=== PATIENT | male | born 1935 | race Caucasian/White ===

== ENCOUNTER 2017-08-24 15:22 | Observation (INO) | END 2017-08-25 12:26 ==

== ENCOUNTER 2018-08-25 07:04 | Inpatient (IN) | payer BC ==
[~2018-08-25] VITALS: Ht 170.2 cm; Wt 78.7 kg
[~2018-08-25 07:04] MED LIST: CARV6.25 PO; DONE5TAB46 PO; MIRT15TA5 PO; OLAN5TAB5 PO; TAMS-14 PO
--- NOTE | 2018-08-25 08:15 | ERD ---
ER Documentation Chief Complaint Chief Complaint lying on floor next to bed, redness noted around right eye,no other injury HPI 82-year-old male brought to the emergency department by paramedics from his care facility. Patient has what appears to be an extensive underlying dementia and is unable to provide any history. According to the paramedics, patient was found at the side of his bed after apparent fall. There is no witness to the fall. There is no history of syncope or loss of consciousness. Patient had no obvious traumatic complaints. I have reviewed the training development specialist pre-hospital care. Pre-hospital vital signs were reviewed. Pre-hospital diagnostic tests were reviewed. Upon arrival, patient is unable to provide any further history. ROS All systems reviewed and are negative except as per history of present illness. Medications Home Meds Reported Medications Tamsulosin Hcl* (Flomax*) 0.4 Mg Cap.er.24h, 0.4 MG PO HS, CAP 08/24/17 Carvedilol* (Coreg*) 6.25 Mg Tablet, 6.25 MG PO BID, #60 TAB 08/24/17 Olanzapine* (Zyprexa*) 5 Mg Tablet, 5 MG PO DAILY, #30 TAB 08/24/17 Mirtazapine* (Mirtazapine*) 15 Mg Tablet, 15 MG PO HS, TAB 08/24/17 Donepezil* (Aricept*) 5 Mg Tablet, 5 MG PO DAILY, TAB 08/24/17 Allergies Allergies: Coded Allergies: No Known Allergy (Unverified , 08/24/17) PMhx/Soc History of Surgery: No Anesthesia Reaction: No Hx Neurological Disorder: Yes (dementia) Hx Respiratory Disorders: No Hx Cardiac Disorders: No Hx Psychiatric Problems: No Hx Miscellaneous Medical Probl: No Hx Alcohol Use: No Hx Substance Use: No Hx Tobacco Use: No Smoking Status: Unknown if ever smoked Physical Exam Vitals Vital Signs Date Temp Pulse Resp B/P (MAP) Pulse Ox O2 O2 Flow FiO2 Time Delivery Rate 08/25/18 98.0 82 20 145/82 99 07:05 (103) Physical Exam General: Frail, elderly male in no acute distress HEENT: Scalp atraumatic with no laceration or evidence of skull fracture; no signs of basilar skull fracture. Face symmetric, stable and atraumatic except for what might be a small contusion on the right periorbital area Neck: Full range of motion without discomfort or neurologic symptoms, no midline cervical spine tenderness, step-off, or evidence of significant trauma CV: Regular rate, rhythm, no murmurs appreciated Lungs: Clear to auscultation bilaterally with no chest wall trauma appreciated, chest wall stable with no crepitus Abdomen: Soft, atraumatic and non-tender in all 4 quadrants Extremities: Atraumatic with no bony tenderness or deformity in all 4 extremities, full range of motion throughout all joints; pelvis stable to both AP and lateral compression Back: No thoracic or lumbar midline tenderness, no step-off or evidence of significant trauma Neurologic: Awake, alert and oriented, pupils equal, round and reactive to light, face symmetric, tongue midline, moving all extremities with equal and normal strength, sensory exam grossly non-focal Result Diagram: 08/25/1873708/25/18737 Results 24 hrs Laboratory Tests Test 08/25/18 07:33 08/25/18 07:38 08/25/18 08:07 Bedside Glucose 92 mg/dL White Blood Count 12.4 10^3/ul Red Blood Count 4.42 10^6/ul Hemoglobin 13.6 g/dl Hematocrit 41.3 % Mean Corpuscular Volume 93.4 fl Mean Corpuscular Hemoglobin 30.8 pg Mean Corpuscular Hemoglobin Concent 32.9 g/dl Red Cell Distribution Width 13.6 % Platelet Count 179 10^3/UL Mean Platelet Volume 10.2 fl Immature Granulocytes % 0.300 % Neutrophils % 80.5 % Lymphocytes % 10.8 % Monocytes % 7.8 % Eosinophils % 0.3 % Basophils % 0.3 % Nucleated Red Blood Cells % 0.0 /100WBC Immature Granulocytes # 0.040 10^3/ul Neutrophils # 10.0 10^3/ul Lymphocytes # 1.3 10^3/ul Monocytes # 1.0 10^3/ul Eosinophils # 0.0 10^3/ul Basophils # 0.0 10^3/ul Nucleated Red Blood Cells # 0.0 10^3/ul Sodium Level 145 mmol/L Potassium Level 4.4 mmol/L Chloride Level 108 mmol/L Carbon Dioxide Level 28 mmol/L Anion Gap 9 Blood Urea Nitrogen 22 mg/dl Creatinine 1.49 mg/dl Est Glomerular Filtrat Rate mL/min mL/min Glucose Level 101 mg/dl Calcium Level 9.6 mg/dl Troponin I 0.134 ng/ml Prothrombin Time 13.9 Sec Prothrombin Time Ratio 1.1 INR International Normalized Ratio 1.06 Activated Partial Thromboplast Time 28.6 Sec Current Medications Medications Dose Sig/Shiva Start Time Status Last (Trade) Ordered Route PRN Stop Time Admin Dose Reason Admin Aspirin 325 mg ONCE ONCE 08/25/18 (Aspirin) PO 09:30 08/25/18 09:31 Procedures/MDM Patient was taken to a room, seen and evaluated. Comfort measures were initiated. Diagnostic tests were ordered and reviewed. 3 LEAD RHYTHM STRIP: Normal sinus rhythm without ectopy EK lead EKG reviewed by myself: Normal Sinus Rhythm Left bundle branch block No ST elevation, depression, or T wave inversion Impression: Left bundle branch block RADIOLOGY: Reviewed with the radiologist CONSULTATION: Hospitalist was notified for admission REEVALUATION: 904: Diagnostic tests were appreciated including the normal CT scan and the patient received an aspirin for the elevated troponin. Decision was made to admit for observation. Patient remained hemodynamic is stable and neurologically unchanged. MEDICAL DECISION MAKING: Patient presents after a fall. From a trauma standpoint, patient has been evaluated for significant injury. Patient shows no evidence of significant neurologic, intra-abdominal, intrathoracic or orthopedic trauma based on clinical examination and imaging From a medical standpoint, the fall seems to be related to a geriatric syndrome with multiple causes. I have reviewed medications and evaluated the patient for infection, electrolyte concerns, ischemia and other acute medical concerns. It is unclear exactly what happened with the patient's fall and I am concerned that there may have been a syncopal episode. Patient has a left bundle branch block making it difficult to assess his cardiac status and his troponin is elevated. Patient will require admission for observation to see if this truly represents a cardiac ischemic event From a social standpoint, the patient has been evaluated for safety. It is unclear what the patient's baseline status is but he seems to have a significant underlying dementia which is limiting her ability to take a history and therefore observation seems appropriate Departure Diagnosis: Primary Impression: Fall Additional Impressions: Left bundle branch block (LBBB) Elevated troponin Condition: MITCHELL Cool Aug 25, 2018 08:15
[2018-08-25] MEDS ORDERED: ONDANSETRON 4 MG INJ IV PRN ×2 (09:30→10:00)
[2018-08-25] MEDS ORDERED: ACETAMINOPHEN 325 MG TAB PO PRN ×2 (09:30→10:00)
[2018-08-25] MEDS ORDERED: ASPIRIN 325 MG TAB PO ONE (09:30)
[2018-08-25] MEDS ORDERED: MELA5TAB4 PO (09:55)
[2018-08-25] MEDS: SOD CHLORIDE 0.9% 1,000 ML IV SCH ×2 (09:55→12:24)
[2018-08-25] MEDS: FAMOTIDINE 20 MG INJ IV SCH (09:55)
[2018-08-25] MEDS ORDERED: ATOR10TA65 PO (09:55)
[2018-08-25] MEDS ORDERED: ASPI325T30 PO (09:55)
[2018-08-25] MEDS ORDERED: CARV3.1260 PO (09:56)
[2018-08-25] MEDS ORDERED: PANT40TA3 PO (09:57)
[2018-08-25] MEDS ORDERED: DIAZ5TAB4 PO (09:57)
[2018-08-25] MEDS ORDERED: DOCU250C58 PO (09:58)
[2018-08-25] MEDS ORDERED: VIT1TABL46 PO (09:58)
[2018-08-25] MEDS ORDERED: ESCI20TA PO (09:59)
[2018-08-25] MEDS ORDERED: IBUP-1542 PO (09:59)
[2018-08-25] MEDS ORDERED: HYDROCODONE/APAP (5/325) TAB PO PRN (10:00)
[2018-08-25] MEDS ORDERED: IPRA30SP NS (10:00)
[2018-08-25] MEDS ORDERED: DOCUSATE SODIUM 100 MG CAP PO PRN (10:00)
[2018-08-25] MEDS ORDERED: morphine 2 MG INJ IV PRN (10:00)
[2018-08-25] MEDS ORDERED: NITROGLYCERIN (SL) 0.4 MG TAB SL PRN (10:00)
[2018-08-25] MEDS ORDERED: MAGNESIUM HYDROXIDE 30ML CUP PO PRN (10:00)
[2018-08-25] MEDS ORDERED: NACL 0.9% 3 ML SYG IV SCH (10:00)
[2018-08-25] MEDS ORDERED: BISACODYL 10 MG SUPP PR PRN (10:00)
[2018-08-25] MEDS ORDERED: ACETAMINOPHEN 650 MG SUPP PR PRN (10:00)
[2018-08-25 10:50] VITALS: BP 118/64; PULSE 77; RESP 20
[2018-08-25 11:15] VITALS: BP 143/66; PULSE 64; RESP 19
[2018-08-25] MEDS ORDERED: HEPARIN 1000 UNITS/ML 10 ML INJ IV PRN (13:00)
[2018-08-25] MEDS ORDERED: HEPARIN 1000 UNITS/ML 10 ML INJ IV ONE (13:00)
[2018-08-25] MEDS ORDERED: HEPARIN 25000 UNITS/250 ML 250 ML IV SCH (13:00)
--- NOTE | 2018-08-25 13:11 | HP ---
Date/Time of Note Date/Time of Note DATE: 08/25/18 TIME: 12:55 Assessment/Plan VTE Prophylaxis Pharmacological prophylaxis: heparin Lines/Catheters IV [facility]from [facility] Saline Lock Assessment/Plan Hospital Course Assessment plan 1. Suspect syncope. - Initial CT scan of the brain with no acute intracranial hemorrhage, infarction or mass-effect. - Follow-up on carotid Doppler. - Check orthostatic blood pressures. 2. Elevated troponin. - Locksmith consulted. - Follow-up echocardiogram. - Defer anticoagulation for now. - Monitor troponin trend. - monitor on telemetry 3. Underlying dementia. - Continue reorientation. -Resume patient's home medication. 4. Leukocytosis. - Suspect reactive. - Follow-up on cultures. - Antipyretics as needed for fevers. 5. Acute on suspect chronic kidney disease. - Follow-up on renal panel. - Continue IV hydration. - nephrology consult pending clinical course 6. Elevated creatinine kinase -. Continue IV hydration. 7. Constipation per CT imaging. - Laxatives as needed. 8. Prostatomegaly. - Continue on Flomax. 9. History of hyperlipidemia. - Follow-up on CHD panel. 10. Hypertension. - Continue antihypertensives. Will adjust as needed. 11. Recent fall. -Will get PT/OT To follow. Discussed POC with Dr. Kim Result Diagram: 08/25/1873708/25/1838 Results 24hrs Laboratory Tests Test 08/25/18 07:33 08/25/18 07:38 08/25/18 08:07 08/25/18 11:26 Bedside Glucose 92 White Blood Count 12.4 #H Red Blood Count 4.42 L Hemoglobin 13.6 L Hematocrit 41.3 L Mean Corpuscular Volume 93.4 Mean Corpuscular 30.8 Hemoglobin Mean Corpuscular 32.9 Hemoglobin Concent Red Cell Distribution 13.6 Width Platelet Count 179 Mean Platelet Volume 10.2 Immature Granulocytes % 0.300 Neutrophils % 80.5 H Lymphocytes % 10.8 L Monocytes % 7.8 Eosinophils % 0.3 Basophils % 0.3 Nucleated Red Blood 0.0 Cells % Immature Granulocytes # 0.040 H Neutrophils # 10.0 H Lymphocytes # 1.3 Monocytes # 1.0 H Eosinophils # 0.0 Basophils # 0.0 Nucleated Red Blood 0.0 Cells # Sodium Level 145 H Potassium Level 4.4 Chloride Level 108 Carbon Dioxide Level 28 Anion Gap 9 Blood Urea Nitrogen 22 H Creatinine 1.49 H Est Glomerular Filtrat Rate mL/min Glucose Level 101 Calcium Level 9.6 Troponin I 0.134 *H 0.131 *H Prothrombin Time 13.9 Prothrombin Time Ratio 1.1 INR International 1.06 Normalized Ratio Activated 28.6 Partial Thromboplast Time Creatine Kinase 797 H Creatine Kinase Index 0.7 Creatinine Kinase MB 5.56 H (Mass) HPI/ROS Admit Date/Time Admit Date/Time Aug 25, 2018 at 09:08 Hx of Present Illness This Is an 82-year-old male with history of hypertension, hyperlipidemia, CHF, suspect CABG, who came to the hospital from care facility due to reported fall (unwitnessed) and there was suspicion of syncope. Patient does have underlying dementia and is unable to give an account of his medical history. Current history obtained from staff and medical record. EKG was noted to have left bundle branch block with elevated troponin at 0.134 with slight downward trend to 0.131. He also had some renal insufficiency with a creatinine of 1.49 with baseline unknown. Initial brain CT showed no acute intracranial hemorrhage or transcortical infarction or mass-effect. Abdominal CT was done on August 24, 2018 and only showed small hiatal hernia and thickening of the avery of the stomach but no evidence of bowel obstruction. Chest x-ray showed mild to moderate cardiomegaly without congestive heart failure and tiny left pleural effusion. Patient denies any chest pain. He was afebrile on admission. He was noted with some leukocytosis as well. Is alert but not oriented which is likely his baseline given his history of dementia. We will evaluate him for the aformentiond issues. ROS Unable to obtain due to patient mentation ENT: bleeding PMH/Family/Social Past Medical History Medical/surgical history 1. Hypertension 2 hyperlipidemia 3. CHF 4. Suspect CABG 5. Dementia 6. Prostatomegaly 7. Anemia likely of chronic disease Medications Current Medications Carvedilol (Coreg) 6.25 mg BID PO ; Start 08/25/18 at 21:00 Donepezil HCl (Aricept) 5 mg DAILY PO ; Start 08/26/18 at 09:00 Mirtazapine (Remeron) 15 mg HS PO ; Start 08/25/18 at 21:00 Olanzapine (Zyprexa) 5 mg DAILY PO ; Start 08/26/18 at 09:00 Tamsulosin HCl (Flomax) 0.4 mg HS PO ; Start 08/25/18 at 21:00 IV Flush (NS 3 ml) 3 ml PER PROTOCOL IV ; Start 08/25/18 at 10:00 Ondansetron HCl (Zofran Inj) 4 mg Q6H PRN IV NAUSEA/VOMITING; Start 08/25/18 at 10:00 Acetaminophen (Tylenol Tab) 650 mg Q6H PRN PO .PAIN 1-3 OR TEMP; Start 08/25/18 at 10:00 Acetaminophen (Tylenol Supp) 650 mg Q6H PRN MA .PAIN 1-3 OR TEMP; Start 08/25/18 at 10:00 Acetaminophen/ Hydrocodone Bitart ([place] (5/325)) 1 tab Q6H PRN PO .MOD PAIN 4- 6; Start 08/25/18 at 10:00 Morphine Sulfate (morphine) 2 mg Q4H PRN IV .SEVERE PAIN 7-10; Start 08/25/18 at 10:00 Docusate Sodium (Colace) 100 mg Q12H PRN PO .CONSTIPATION; Start 08/25/18 at 10:00 Magnesium Hydroxide (Milk Of Mag) 30 ml DAILY PRN PO .CONSTIPATION; Start 08/25/18 at 10:00 Bisacodyl (Dulcolax Supp) 10 mg DAILY PRN MA .CONSTIPATION; Start 08/25/18 at 10:00 Famotidine (Pepcid Iv) 20 mg DAILY IV Last administered on 08/25/18at 09:55; Admin Dose 20 MG; Start 08/25/18 at 10:00 Aspirin (Aspirin) 81 mg DAILY PO ; Start 08/27/18 at 09:00 Nitroglycerin (Nitroglycerin (Sl Tab) 0.4 Mg) 1 tab Q5M PRN SL CHEST PAIN; Start 08/25/18 at 10:00 Sodium Chloride 1,000 ml @ 100 mls/hr Q10H IV Last administered on 08/25/18at 12:24; Admin Dose 75 MLS/HR; Start 08/25/18 at 10:00 Miscellaneous Information (* Miscellaneous Pharmacy Order) DC previous hepa... ONCE ONCE XX ; Start 08/25/18 at 13:00; Stop 08/25/18 at 13:01; Status UNV Heparin Sodium (Porcine) (Heparin (1000 Units/ml)) 4,000 unit ONCE ONCE IV ; Start 08/25/18 at 13:00; Stop 08/25/18 at 13:01; Status UNV Heparin Sodium (Porcine) (Heparin (1000 Units/ml)) 4,000 unit PER PROTOCOL PRN IV aPTT<47; Start 08/25/18 at 13:00; Status UNV Heparin Sodium (Porcine) 250 ml @ 0 mls/hr PER PROTOCOL IV ; Start 08/25/18 at 13:00; Status UNV Coded Allergies: No Known Allergy (Unverified , 08/25/18) Family History Significant Family History: other (Unable to obtain due to patient mentation) Social History Smoking Status: Unknown if ever smoked Exam/Review of Systems Vital Signs Vitals Vital Signs Date Temp Pulse Resp B/P (MAP) Pulse Ox O2 O2 Flow FiO2 Time Delivery Rate 08/25/18 Nasal 11:15 Cannula Exam Constitutional: alert; No oriented Respiratory: clear to auscultation, normal air movement Cardiovascular: irregular rhythm Gastrointestinal: soft, non-tender Musculoskeletal: No swelling Neurological: No nl mental status Skin: nl HOA López NP Aug 25, 2018 13:05
[2018-08-25 14:15] VITALS: Ht 170.2 cm; Wt 78.7 kg
[2018-08-25] MEDS: HEPARIN 5,000 UNIT/1 ML VIAL SC SCH ×2 (15:19→21:41)
--- NOTE | 2018-08-25 15:22 | RADRPT ---
Echocardiogram Report Patient Name: TREY MODIPatient ID: [id number] : 104 (82y 9m)Study Date: 08/25/2018 10:06:33 AM Gender: MAccession #: [id number] Tech: ElaineCarlos Baum RDCS [facility] Ref.Physician: HOA PARDO Height(Cm): BSA: Weight(Kg): Quality: AdequateOrder Physician: HOA PARDO Account #: Procedures: Echocardiographic Report: Transthoracic echocardiogram with complete 2D, M-Mode, and doppler examination. Indications: NSTEMI. LBBB. Measurements: 2D/M Mode Doppler Measurement Value Normal Range Measurement Value Normal Range LVIDd 2D 4.8 [ 4.2 - 5.8 ] cm AV Peak Kwesi 1.0 [ 100.0 - 170.0 ] cm/sec LVIDs 2D 2.7 [ 2.5 - 4.0 ] cm AV Peak PG 4.0 [ 2.0 - 9.0 ] mmHg LVPWd 2D 1.3 [ 0.6 - 1.0 ] cm AI Peak PG 27.0 mmHg IVSd 2D 1.4 [ 0.6 - 1.0 ] cm AI Peak Kwesi 2.6 cm/sec AoR Diam 2D 3.5 [ 2.6 - 3.4 ] cm AI PHT 286.0 msec EDV 2D 109.0 [ 62.0 - 150.0 ] ml LVOT Peak Kwesi 0.9 [ 70.0 - 110.0 ] cm/sec ESV 2D 26.8 [ 21.0 - 61.0 ] ml LVOT Peak PG 3.0 [ 2.0 - 6.0 ] mmHg EF 2D 75.4 [ 52.0 - 72.0 ] percent MV Peak Kwesi 1.7 [ 60.0 - 130.0 ] cm/sec LA Dimen 2D 3.9 [ 3.0 - 4.0 ] cm MV Peak PG 11.0 [ 1.0 - 10.0 ] mmHg MV Mean Kwesi 0.9 cm/sec MV Mean PG 4.0 mmHg MV VTI 35.8 cm TR Peak Kwesi 1.9 [ 100.0 - 280.0 ] cm/sec TR Peak PG 15.0 mmHg RVSP 18.0 [ 10.0 - 36.0 ] mmHg RA Pressure 3.0 mmHg Findings: Left Ventricle: Normal left ventricular systolic function. Normal left ventricular cavity size. Moderate concentric left ventricular hypertrophy. Ejection fraction is visually estimated at 50 %. Tissue Doppler/Mitral Doppler indices are indeterminate in this study due to the presence of mitral valve repair. Right Ventricle: Normal right ventricular size. Normal right ventricular systolic function. Left Atrium: The left atrium is normal in size. Right Atrium: The right atrium is normal in size. Mitral Valve: Mitral Valve Bio Prosthesis. Mitral valve Max Velocity 1.66 m/sec. MaxPG 11.00 mmHg. MeanPG 4.00 mmHg. Aortic Valve: No hemodynamically significant aortic stenosis by doppler. Aortic cusps appear moderately calcified. Mild aortic valve regurgitation. Tricuspid Valve: Normal appearance and function of the tricuspid valve with trace physiologic regurgitation. Normal right ventricular systolic pressure. Pulmonic Valve: Normal pulmonic valve appearance. Pericardium: Normal pericardium with no significant pericardial effusion. Aorta: Normal aortic root. IVC: Normal size and normal respiratory collapse consistent with normal right atrial pressure. Conclusions: Normal left ventricular systolic function. Normal left ventricular cavity size. Moderate concentric left ventricular hypertrophy. Ejection fraction is visually estimated at 50 %. Tissue Doppler/Mitral Doppler indices are indeterminate in this study due to the presence of mitral valve repair. Mitral Valve Bio Prosthesis. Mitral valve Max Velocity 1.66 m/sec. MaxPG 11.00 mmHg. MeanPG 4.00 mmHg. No hemodynamically significant aortic stenosis by doppler. Aortic cusps appear moderately calcified. Mild aortic valve regurgitation. Normal pericardium with no significant pericardial effusion. Electronically Signed By: Miguel Everett 2018-08-25 15:21:12 PDT
[2018-08-25 16:00] VITALS: BP 110/62; PULSE 82
--- NOTE | 2018-08-25 17:42 | CONS ---
DATE OF ADMISSION: 08/25/2018 DATE OF CONSULTATION: 08/25/2018 REASON FOR CONSULTATION: Positive troponin, assess significance. REQUESTING PHYSICIAN: Hoa Roche. HISTORY OF PRESENT ILLNESS: Mr. Padilla is an 82-year-old male with a history of hypertension, dyslipidemia, congestive heart failure, prior median sternotomy and this possible CABG, preserved EF by echo 08/25/2017 with a mitral valve bioprosthesis, who presented with reported syncopal episode. The patient is demented and therefore cannot provide any additional history. Upon arrival, temperature 98, blood pressure 145/82, pulse 80, respiratory rate 20, sat 99%. The patient's labs revealed white count 12.4, hemoglobin 32.6, platelet count 179. Sodium of 145, potassium 4.4, creatinine 0.49, BUN of 22. Troponin of 0.134. INR of 1.0. The patient underwent a chest x-ray revealing mild to moderate cardiomegaly without congestive heart failure, blunted left costophrenic angle consistent with tiny left pleural effusion and a head CT that revealed no acute intracranial hemorrhage, transcortical infarction or mass effect, moderate intracranial atherosclerosis, mild to moderate generalized volume loss. The patient's electrocardiogram revealed sinus rhythm, rate of 80 with left bundle branch block, secondary repolarization abnormalities. The patient subsequently admitted to the floor and since admitted to the floor appears more confused, not clearly respond to questions, but does deny chest pain. Troponins have gone from 0.134 to 0.131 with a negative CK-MB fraction. PAST MEDICAL HISTORY: As above in HPI. MEDICATIONS CURRENTLY IN HOSPITAL: 1. Aspirin 81 mg daily. 2. Carvedilol 6.25 mg p.o. b.i.d. 3. Zyprexa 5 mg daily. 4. Aricept. 5. Flomax 0.4 mg at bedtime. 6. Zofran p.r.n. 7. Tylenol p.r.n. 8. [place] p.r.n. 9. Morphine p.r.n. 10. IV fluid hydration 75 mL an hour. 11. Pepcid 20 mg IV daily. ALLERGIES: NO KNOWN DRUG ALLERGIES. SOCIAL HISTORY: No current tobacco, EtOH or illicit drug use. FAMILY HISTORY: No history of sudden cardiac or early CAD. REVIEW OF SYSTEMS: As above in HPI. CONSTITUTIONAL: No fevers, chills. PULMONARY: No current signs of respiratory compromise. GASTROINTESTINAL: No vomiting. GENITOURINARY: Renal failure. PSYCHIATRIC: No documented psych history. NEUROLOGIC: Dementia, altered mental state. CARDIOVASCULAR: Positive troponin. PHYSICAL EXAMINATION: VITAL SIGNS: Temperature 98.2, blood pressure 118/64, pulse 77, respiratory rate 20, sat 94%. GENERAL: The patient is alert, awake, no acute distress, but confused. NECK: JVP approximately 8 to 9 cm of water. CHEST: Decreased breath sounds at bases bilaterally. HEART: Regular rate and rhythm. Normal S1, S2, I/ systolic murmur. Nondisplaced PMI. ABDOMEN: Positive bowel sounds, soft. EXTREMITIES: No significant pitting edema. Somewhat difficult to palpate distal pulses, bilateral posterior tibial. LABORATORY DATA: As above in HPI. No further labs for my review at this time. IMAGING STUDIES: As above in HPI. No further imaging studies for my review at this time. ECG: As above in HPI. No further electrocardiograms for my review at this time. IMPRESSION: 1. Positive troponin concerning for non-ST elevation myocardial infarction with down trend in the setting of renal failure at this time and patient denying chest pain, although it is not clear if patient is a reliable historian 2. Abnormal electrocardiogram with left bundle branch block pattern, which is unclear if this is a new or old history of likely coronary artery disease, likely status post CABG. The patient is status post median sternotomy. 3. Hypertension. 4. History of dyslipidemia. 5. Renal failure. 6. Anemia. 7. Leukocytosis. 8. Dementia. RECOMMENDATIONS: 1. At this time, we would maintain patient on telemetry monitoring to follow rhythm and rates closely. 2. Continue patient's aspirin for prophylaxis against further cardiovascular events and the patient's heparin, although likely can be subcutaneous at this time, the patient is already down trending, may not need IV heparin. We will continue to follow on cardiac enzymes. 3. Continue the patient's baseline beta sue. Follow blood pressure and heart rate closely. Recheck a BNP to further assess patient's current volume status. 4. Continue to follow the patient's creatinine closely on IV fluid hydration. May check a 2D echo for this patient's ejection fraction, wall motion or any major abnormalities and we will check fasting lipid panel and start lipid- lowering medication as necessary 5. Give patient sublingual nitroglycerin for any recurrence of chest pain at this time. Thank you for allowing me to take part in the care of this patient. I will continue to follow him very closely with you. Further recommendations will be made as the patient progresses through inpatient hospital clinical course. Dictated By: REYNA NANCE/SOPHIE Conf#: [id number] DID#: [id number] CC: JACOB WRIGHT MD; HOA ROCHE NP;*EndCC* MTDD
[2018-08-25 18:28] VITALS: BP 144/79; PULSE 79; RESP 18
[2018-08-25 20:00] VITALS: BP 147/80; PULSE 80; RESP 18
[2018-08-25] MEDS: MIRTAZAPINE 15 MG TAB PO SCH (21:34)
[2018-08-25] MEDS: TAMSULOSIN (SR) 0.4 MG CAP PO SCH (21:35)
[2018-08-25 22:00] VITALS: BP 111/62; PULSE 75; RESP 18
[2018-08-26] VITALS (10 sets, daily range): BP systolic 104–143; BP diastolic 58–79; PULSE 70–77; RESP 17–20
[2018-08-26] MEDS: SOD CHLORIDE 0.9% 1,000 ML IV SCH ×3 (02:08→22:40)
[2018-08-26] MEDS: HEPARIN 5,000 UNIT/1 ML VIAL SC SCH ×3 (05:40→22:53)
[2018-08-26] MEDS: OLANZAPINE 5 MG TAB PO SCH (08:58)
[2018-08-26] MEDS: FAMOTIDINE 20 MG INJ IV SCH (08:58)
[2018-08-26] MEDS: DONEPEZIL 5 MG TAB PO SCH (08:58)
--- NOTE | 2018-08-26 13:41 | PN ---
Date/Time of Note Date/Time of Note DATE: 08/26/18 TIME: 13:29 Assessment/Plan VTE Prophylaxis [place] [facility] [place] risk: 6 [place] applied [place] [facility] [place] Yes Pharmacological prophylaxis: heparin Lines/Catheters IV Catheter Type (from [facility]): Peripheral IV Assessment/Plan Hospital Course Assessment plan 1. Suspect syncope. - Initial CT scan of the brain with no acute intracranial hemorrhage, infarction or mass-effect. - carotid Doppler: No evidence for a hemodynamically significant carotid artery stenosis. 2. Elevated troponin. - Nurse Practitioner Hospitalist consulted. - echocardiogram: ejection fraction is visually estimated at 50 % 3. Underlying dementia. - Continue reorientation. -Resume patient's home medication. 4. Leukocytosis. - Suspect reactive. - Follow-up on cultures. - Antipyretics as needed for fevers. 5. Acute on suspect chronic kidney disease. - Continue IV hydration. - nephrology consult pending clinical course 6. Elevated creatinine kinase - Continue IV hydration. 7. Constipation per CT imaging. - Laxatives as needed. 8. Prostatomegaly. - Continue on Flomax. 9. History of hyperlipidemia. - Follow-up on CHD panel. 10. Hypertension. - Continue antihypertensives. Will adjust as needed. 11. Recent fall. -continue PT/OT Disposition and plan. Unable to tolerate oral intake at this time. Continue with ST services. Will f/u family for goals of care. Will see for possible palliative care consultation. Discussed POC with Dr. Kim Result Diagram: 08/26/1851108/26/18 0512 Results 24hrs Laboratory Tests Test 08/25/18 15:33 08/26/18 05:12 08/26/18 05:40 Creatine Kinase 914 H Creatine Kinase Index 0.6 Creatinine Kinase MB (Mass) 5.49 H Troponin I 0.099 White Blood Count 7.0 # Red Blood Count 3.99 L Hemoglobin 12.5 L Hematocrit 37.7 L Mean Corpuscular Volume 94.5 Mean Corpuscular Hemoglobin 31.3 Mean Corpuscular Hemoglobin Concent 33.2 Red Cell Distribution Width 14.0 Platelet Count 169 Mean Platelet Volume 11.0 H Immature Granulocytes % 0.300 Neutrophils % 67.8 Lymphocytes % 20.0 Monocytes % 8.0 Eosinophils % 3.3 Basophils % 0.6 Nucleated Red Blood Cells % 0.0 Immature Granulocytes # 0.020 Neutrophils # 4.8 Lymphocytes # 1.4 Monocytes # 0.6 Eosinophils # 0.2 Basophils # 0.0 Nucleated Red Blood Cells # 0.0 Sodium Level 142 Potassium Level 4.1 Chloride Level 110 Carbon Dioxide Level 25 Anion Gap 7 Blood Urea Nitrogen 20 Creatinine 1.27 H Est Glomerular Filtrat Rate mL/min Glucose Level 86 Hemoglobin A1c 5.1 Calcium Level 8.8 Phosphorus Level 3.4 Magnesium Level 2.0 Total Bilirubin 1.6 H Direct Bilirubin 0.00 Indirect Bilirubin 1.6 H Aspartate Amino Transf (AST/SGOT) 49 H Alanine Aminotransferase (ALT/SGPT) 28 Alkaline Phosphatase 77 Total Protein 6.7 Albumin 3.4 Globulin 3.30 H Albumin/Globulin Ratio 1.03 Triglycerides Level 68 Cholesterol Level 101 LDL Cholesterol, Calculated 47 HDL Cholesterol 40 Cholesterol/HDL Ratio 2.5 Thyroid Stimulating Hormone (TSH) 1.850 Free Thyroxine Index 3.12 Thyroxine (T4) 7.7 Triiodothyronine (T3) Uptake 40.5 Urine Color YELLOW Urine Clarity CLEAR Urine pH 6.0 Urine Specific [place] 1.017 Urine Ketones TRACE A Urine Nitrite NEGATIVE Urine Bilirubin NEGATIVE Urine Urobilinogen NEGATIVE Urine Leukocyte Esterase NEGATIVE Urine Hemoglobin NEGATIVE Urine Glucose NEGATIVE Urine Total Protein NEGATIVE Subjective 24 Hr Interval Summary Free Text/Dictation alert, but still confused. CALL CENTER MANAGER was by bedside. during interview Exam/Review of Systems Exam Vitals Vital Signs Date Temp Pulse Resp B/P (MAP) Pulse Ox O2 O2 Flow FiO2 Time Delivery Rate 08/26/18 98.0 70 20 131/68 94 Room Air 11:25 (89) Intake and Output 08/25/18 08/25/18 08/26/18 1515:00 23:00 07:00 IntakeIntake Total 300 ml 500 ml 500 ml OutputOutput Total 300 ml BalanceBalance 300 ml 500 ml 200 ml Exam Constitutional: alert, confused No oriented Respiratory: clear to auscultation, normal air movement Cardiovascular: irregular rhythm Gastrointestinal: soft, non-tender Musculoskeletal: No swelling Neurological: No nl mental status Skin: nl turgor Results Results 24hrs Laboratory Tests Test 08/25/18 15:33 08/26/18 05:12 08/26/18 05:40 Creatine Kinase 914 H Creatine Kinase Index 0.6 Creatinine Kinase MB (Mass) 5.49 H Troponin I 0.099 White Blood Count 7.0 # Red Blood Count 3.99 L Hemoglobin 12.5 L Hematocrit 37.7 L Mean Corpuscular Volume 94.5 Mean Corpuscular Hemoglobin 31.3 Mean Corpuscular Hemoglobin Concent 33.2 Red Cell Distribution Width 14.0 Platelet Count 169 Mean Platelet Volume 11.0 H Immature Granulocytes % 0.300 Neutrophils % 67.8 Lymphocytes % 20.0 Monocytes % 8.0 Eosinophils % 3.3 Basophils % 0.6 Nucleated Red Blood Cells % 0.0 Immature Granulocytes # 0.020 Neutrophils # 4.8 Lymphocytes # 1.4 Monocytes # 0.6 Eosinophils # 0.2 Basophils # 0.0 Nucleated Red Blood Cells # 0.0 Sodium Level 142 Potassium Level 4.1 Chloride Level 110 Carbon Dioxide Level 25 Anion Gap 7 Blood Urea Nitrogen 20 Creatinine 1.27 H Est Glomerular Filtrat Rate mL/min Glucose Level 86 Hemoglobin A1c 5.1 Calcium Level 8.8 Phosphorus Level 3.4 Magnesium Level 2.0 Total Bilirubin 1.6 H Direct Bilirubin 0.00 Indirect Bilirubin 1.6 H Aspartate Amino Transf (AST/SGOT) 49 H Alanine Aminotransferase (ALT/SGPT) 28 Alkaline Phosphatase 77 Total Protein 6.7 Albumin 3.4 Globulin 3.30 H Albumin/Globulin Ratio 1.03 Triglycerides Level 68 Cholesterol Level 101 LDL Cholesterol, Calculated 47 HDL Cholesterol 40 Cholesterol/HDL Ratio 2.5 Thyroid Stimulating Hormone (TSH) 1.850 Free Thyroxine Index 3.12 Thyroxine (T4) 7.7 Triiodothyronine (T3) Uptake 40.5 Urine Color YELLOW Urine Clarity CLEAR Urine pH 6.0 Urine Specific [place] 1.017 Urine Ketones TRACE A Urine Nitrite NEGATIVE Urine Bilirubin NEGATIVE Urine Urobilinogen NEGATIVE Urine Leukocyte Esterase NEGATIVE Urine Hemoglobin NEGATIVE Urine Glucose NEGATIVE Urine Total Protein NEGATIVE Medications Medication Current Medications Carvedilol (Coreg) 6.25 mg BID PO Last administered on 08/26/18at 08:58; Admin Dose 6.25 MG; Start 08/25/18 at 21:00 Donepezil HCl (Aricept) 5 mg DAILY PO Last administered on 08/26/18at 08:58; Admin Dose 5 MG; Start 08/26/18 at 09:00 Mirtazapine (Remeron) 15 mg HS PO Last administered on 08/25/18at 21:34; Admin Dose 15 MG; Start 08/25/18 at 21:00 Olanzapine (Zyprexa) 5 mg DAILY PO Last administered on 08/26/18at 08:58; Admin Dose 5 MG; Start 08/26/18 at 09:00 Tamsulosin HCl (Flomax) 0.4 mg HS PO Last administered on 08/25/18at 21:35; Admin Dose 0.4 MG; Start 08/25/18 at 21:00 IV Flush (NS 3 ml) 3 ml PER PROTOCOL IV ; Start 08/25/18 at 10:00 Ondansetron HCl (Zofran Inj) 4 mg Q6H PRN IV NAUSEA/VOMITING; Start 08/25/18 at 10:00 Acetaminophen (Tylenol Tab) 650 mg Q6H PRN PO .PAIN 1-3 OR TEMP; Start 08/25/18 at 10:00 Acetaminophen (Tylenol Supp) 650 mg Q6H PRN [place] .PAIN 1-3 OR TEMP; Start 08/25/18 at 10:00 Acetaminophen/ Hydrocodone Bitart ([place] (5/325)) 1 tab Q6H PRN PO .MOD PAIN 4- 6; Start 08/25/18 at 10:00 Morphine Sulfate (morphine) 2 mg Q4H PRN IV .SEVERE PAIN 7-10; Start 08/25/18 at 10:00 Docusate Sodium (Colace) 100 mg Q12H PRN PO .CONSTIPATION; Start 08/25/18 at 10:00 Magnesium Hydroxide (Milk Of Mag) 30 ml DAILY PRN PO .CONSTIPATION; Start 08/25/18 at 10:00 Bisacodyl (Dulcolax Supp) 10 mg DAILY PRN [place] .CONSTIPATION; Start 08/25/18 at 10:00 Famotidine (Pepcid Iv) 20 mg DAILY IV Last administered on 08/26/18at 08:58; Admin Dose 20 MG; Start 08/25/18 at 10:00 Aspirin (Aspirin) 81 mg DAILY PO ; Start 08/27/18 at 09:00 Nitroglycerin (Nitroglycerin (Sl Tab) 0.4 Mg) 1 tab Q5M PRN SL CHEST PAIN; Start 08/25/18 at 10:00 Sodium Chloride 1,000 ml @ 100 mls/hr Q10H IV Last administered on 08/26/18at 02:08; Admin Dose 100 MLS/HR; Start 08/25/18 at 10:00 Heparin Sodium (Porcine) (Heparin (5000 Units/1ml)) 5,000 unit Q8 SC Last administered on 08/26/18at 05:40; Admin Dose 5,000 UNIT; Start 08/25/18 at 14:00 HOA PARDO NP Aug 26, 2018 13:41
--- NOTE | 2018-08-26 14:59 | RADRPT ---
Vent Rate: 72 bpm RR Interval: 832 msec VT Interval: 238 msec QRS Duration: 138 msec QT Interval: 515 msec QTC Interval: 565 msec P-R-T [place]: 56 - -13 - 14 degrees Sinus rhythm...normal P axis, V-rate 50- 99 Prolonged VT interval...VT >220, V-rate 50- 90 Left bundle branch block...QRSd>120, broad/notched R Prolonged QT interval...QTc >500mS Electronically Signed By: Vinnie Pitt
--- NOTE | 2018-08-26 16:18 | CONS ---
Consult Date/Type/Reason Admit Date/Time Aug 25, 2018 at 09:48 Initial Consult Date Date/Time of Note DATE: 08/26/18 TIME: 16:16 Subjective NO acute events - pt comfortable - no CP no, but confused - con't to monitor for now. ROS: NO F/C/N/V/D Objective Vitals Vital Signs Date Temp Pulse Resp B/P (MAP) Pulse Ox O2 O2 Flow FiO2 Time Delivery Rate 08/26/18 98.2 73 18 126/69 94 Room Air 15:01 (88) Intake and Output 08/25/18 08/25/18 08/26/18 1515:00 23:00 07:00 IntakeIntake Total 300 ml 500 ml 500 ml OutputOutput Total 300 ml BalanceBalance 300 ml 500 ml 200 ml Exam General: WN/WD/NAD, AOx 1 HEENT: Unicetric/atraumatic/EOMI (does not follow commands) NECK: JVD elevated, no thyromegaly Lymph: no lymphadenopathy HEART: regular with no S3, II/ systolic murmur at apex PMI L LUNGS: Coarse sounds ABD: soft, NT, ND, +BS : Intact Neuro: non focal SKIN: chronic changes EXT: trace edema Results/Medications Result Diagram: 08/26/18 0512 08/26/18 0512 Results 24 hrs Laboratory Tests Test 08/26/18 05:12 08/26/18 05:40 White Blood Count 7.0 # Red Blood Count 3.99 L Hemoglobin 12.5 L Hematocrit 37.7 L Mean Corpuscular Volume 94.5 Mean Corpuscular Hemoglobin 31.3 Mean Corpuscular Hemoglobin Concent 33.2 Red Cell Distribution Width 14.0 Platelet Count 169 Mean Platelet Volume 11.0 H Immature Granulocytes % 0.300 Neutrophils % 67.8 Lymphocytes % 20.0 Monocytes % 8.0 Eosinophils % 3.3 Basophils % 0.6 Nucleated Red Blood Cells % 0.0 Immature Granulocytes # 0.020 Neutrophils # 4.8 Lymphocytes # 1.4 Monocytes # 0.6 Eosinophils # 0.2 Basophils # 0.0 Nucleated Red Blood Cells # 0.0 Sodium Level 142 Potassium Level 4.1 Chloride Level 110 Carbon Dioxide Level 25 Anion Gap 7 Blood Urea Nitrogen 20 Creatinine 1.27 H Est Glomerular Filtrat Rate mL/min Glucose Level 86 Hemoglobin A1c 5.1 Calcium Level 8.8 Phosphorus Level 3.4 Magnesium Level 2.0 Total Bilirubin 1.6 H Direct Bilirubin 0.00 Indirect Bilirubin 1.6 H Aspartate Amino Transf (AST/SGOT) 49 H Alanine Aminotransferase (ALT/SGPT) 28 Alkaline Phosphatase 77 Total Protein 6.7 Albumin 3.4 Globulin 3.30 H Albumin/Globulin Ratio 1.03 Triglycerides Level 68 Cholesterol Level 101 LDL Cholesterol, Calculated 47 HDL Cholesterol 40 Cholesterol/HDL Ratio 2.5 Thyroid Stimulating Hormone (TSH) 1.850 Free Thyroxine Index 3.12 Thyroxine (T4) 7.7 Triiodothyronine (T3) Uptake 40.5 Urine Color YELLOW Urine Clarity CLEAR Urine pH 6.0 Urine Specific [place] 1.017 Urine Ketones TRACE A Urine Nitrite NEGATIVE Urine Bilirubin NEGATIVE Urine Urobilinogen NEGATIVE Urine Leukocyte Esterase NEGATIVE Urine Hemoglobin NEGATIVE Urine Glucose NEGATIVE Urine Total Protein NEGATIVE Home Meds Reported Medications Ipratropium [employer] (Ipratropium [employer]) 30 Ml [place], 30 ML NS TID, SPRAY 08/25/18 Ibuprofen* (Ibuprofen*) 600 Mg Tablet, 600 MG PO Q8 PRN for PAIN, TAB 08/25/18 Escitalopram Oxalate* (Lexapro*) 20 Mg Tablet, 20 MG PO DAILY, #30 TAB 08/25/18 Docusate Sodium* (Colace*) 250 Mg Capsule, 250 MG PO DAILY, #30 CAP 08/25/18 Vitamin B Complex* (Vitamin B Complex*) 1 Each Tablet, 1 TAB PO DAILY, TAB 08/25/18 Diazepam* (Diazepam*) 5 Mg Tablet, 5 MG PO TID, TAB 08/25/18 Pantoprazole* (Protonix*) 40 Mg Tablet.dr, 40 MG PO DAILY, TAB 08/25/18 Carvedilol* (Carvedilol*) 3.125 Mg Tablet, 3.125 MG PO BID, #60 TAB 08/25/18 Atorvastatin Calcium (Atorvastatin Calcium) 10 Mg Tablet, 10 MG PO QHS, #30 TAB 08/25/18 Aspirin* (Aspirin*) 325 Mg Tablet, 325 MG PO DAILY, TAB 08/25/18 Melatonin (Melatonin) 5 Mg Tablet, 5 MG PO HS, TAB 08/25/18 Tamsulosin Hcl* (Flomax*) 0.4 Mg Cap.er.24h, 0.4 MG PO HS, CAP 08/24/17 Olanzapine* (Zyprexa*) 5 Mg Tablet, 5 MG PO DAILY, #30 TAB 08/24/17 Mirtazapine* (Mirtazapine*) 15 Mg Tablet, 15 MG PO HS, TAB 08/24/17 Donepezil* (Aricept*) 5 Mg Tablet, 5 MG PO DAILY, TAB 08/24/17 Discontinued Reported Medications Carvedilol* (Coreg*) 6.25 Mg Tablet, 6.25 MG PO BID, #60 TAB 08/24/17 Medications Current Medications Carvedilol (Coreg) 6.25 mg BID PO Last administered on 08/26/18at 08:58; Admin Dose 6.25 MG; Start 08/25/18 at 21:00 Donepezil HCl (Aricept) 5 mg DAILY PO Last administered on 08/26/18at 08:58; Admin Dose 5 MG; Start 08/26/18 at 09:00 Mirtazapine (Remeron) 15 mg HS PO Last administered on 08/25/18at 21:34; Admin Dose 15 MG; Start 08/25/18 at 21:00 Olanzapine (Zyprexa) 5 mg DAILY PO Last administered on 08/26/18at 08:58; Admin Dose 5 MG; Start 08/26/18 at 09:00 Tamsulosin HCl (Flomax) 0.4 mg HS PO Last administered on 08/25/18at 21:35; Admin Dose 0.4 MG; Start 08/25/18 at 21:00 IV Flush (NS 3 ml) 3 ml PER PROTOCOL IV ; Start 08/25/18 at 10:00 Ondansetron HCl (Zofran Inj) 4 mg Q6H PRN IV NAUSEA/VOMITING; Start 08/25/18 at 10:00 Acetaminophen (Tylenol Tab) 650 mg Q6H PRN PO .PAIN 1-3 OR TEMP; Start 08/25/18 at 10:00 Acetaminophen (Tylenol Supp) 650 mg Q6H PRN [place] .PAIN 1-3 OR TEMP; Start 08/25/18 at 10:00 Acetaminophen/ Hydrocodone Bitart ([place] (5/325)) 1 tab Q6H PRN PO .MOD PAIN 4- 6; Start 08/25/18 at 10:00 Morphine Sulfate (morphine) 2 mg Q4H PRN IV .SEVERE PAIN 7-10; Start 08/25/18 at 10:00 Docusate Sodium (Colace) 100 mg Q12H PRN PO .CONSTIPATION; Start 08/25/18 at 10:00 Magnesium Hydroxide (Milk Of Mag) 30 ml DAILY PRN PO .CONSTIPATION; Start 08/25/18 at 10:00 Bisacodyl (Dulcolax Supp) 10 mg DAILY PRN [place] .CONSTIPATION; Start 08/25/18 at 10:00 Famotidine (Pepcid Iv) 20 mg DAILY IV Last administered on 08/26/18at 08:58; Admin Dose 20 MG; Start 08/25/18 at 10:00 Aspirin (Aspirin) 81 mg DAILY PO ; Start 08/27/18 at 09:00 Nitroglycerin (Nitroglycerin (Sl Tab) 0.4 Mg) 1 tab Q5M PRN SL CHEST PAIN; Start 08/25/18 at 10:00 Sodium Chloride 1,000 ml @ 100 mls/hr Q10H IV Last administered on 08/26/18at 02:08; Admin Dose 100 MLS/HR; Start 08/25/18 at 10:00 Heparin Sodium (Porcine) (Heparin (5000 Units/1ml)) 5,000 unit Q8 SC Last administered on 08/26/18at 13:33; Admin Dose 5,000 UNIT; Start 08/25/18 at 14:00 Assessment/Plan Hospital Course (Demo Recall) 1. Positive troponin concerning for non-ST elevation myocardial infarction with down trend in the setting of renal failure at this time and patient denying chest pain, although it is not clear - med Rx advised at this point. 2. Abnormal electrocardiogram with left bundle branch block pattern, which is unclear if this is a new or old history of likely coronary artery disease, likely status post CABG. The patient is status post median sternotomy. ECHO to follow EF. 3. Hypertension- reasonably controlled. 4. History of dyslipidemia. 5. Renal failure. 6. Anemia. 7. Leukocytosis - on anti-bx now. 8. Dementia. THEODORE SYED MD Aug 26, 2018 16:18
[2018-08-26] MEDS: TAMSULOSIN (SR) 0.4 MG CAP PO SCH (22:35)
[2018-08-26] MEDS: MIRTAZAPINE 15 MG TAB PO SCH (22:35)
[2018-08-27] VITALS (7 sets, daily range): BP systolic 119–138; BP diastolic 69–83; PULSE 67–73; RESP 16–20
[2018-08-27] MEDS: HEPARIN 5,000 UNIT/1 ML VIAL SC SCH ×3 (06:25→22:07)
--- NOTE | 2018-08-27 10:02 | CONS ---
Consult Date/Type/Reason Admit Date/Time Aug 25, 2018 at 09:48 Initial Consult Date Date/Time of Note DATE: 08/27/18 TIME: 09:59 Subjective No acute events - BP in good range - pt comfortable - in good fluid status - agitated as prior - sitter at bedside. ROS: No fever, no chills, no nausea, no vomiting, no diarrhea/constipation No recent weight changes No chest pain, no PND, no orthopnea - mild SOB No dizziness, blurred vision No thirst, no heat or cold intolerance Objective Vitals Vital Signs Date Temp Pulse Resp B/P (MAP) Pulse Ox O2 O2 Flow FiO2 Time Delivery Rate 08/27/18 97.9 73 16 125/72 94 08:00 (89) 08/27/18 Room Air 04:00 Intake and Output 08/26/18 08/26/18 08/27/18 1515:00 23:00 07:00 IntakeIntake Total 410 ml 80 ml OutputOutput Total 2 ml 500 ml BalanceBalance -2 ml -90 ml 80 ml Exam General: WN/WD/NAD, AOx 0 confused HEENT: Unicetric/atraumatic/EOMI (does not follow commands) NECK: JVD elevated, no thyromegaly Lymph: no lymphadenopathy HEART: regular with no S3, II/ systolic murmur at apex, PMI L LUNGS: Coarse sounds ABD: soft, NT, ND, +BS : Intact Neuro: non focal SKIN: chronic changes EXT: trace edema Results/Medications Result Diagram: 08/26/1851108/26/1812 Home Meds Reported Medications Ipratropium [place] (Ipratropium [place]) 30 Ml [place], 30 ML NS TID, SPRAY 08/25/18 Ibuprofen* (Ibuprofen*) 600 Mg Tablet, 600 MG PO Q8 PRN for PAIN, TAB 08/25/18 Escitalopram Oxalate* (Lexapro*) 20 Mg Tablet, 20 MG PO DAILY, #30 TAB 08/25/18 Docusate Sodium* (Colace*) 250 Mg Capsule, 250 MG PO DAILY, #30 CAP 08/25/18 Vitamin B Complex* (Vitamin B Complex*) 1 Each Tablet, 1 TAB PO DAILY, TAB 08/25/18 Diazepam* (Diazepam*) 5 Mg Tablet, 5 MG PO TID, TAB 08/25/18 Pantoprazole* (Protonix*) 40 Mg Tablet.dr, 40 MG PO DAILY, TAB 08/25/18 Carvedilol* (Carvedilol*) 3.125 Mg Tablet, 3.125 MG PO BID, #60 TAB 08/25/18 Atorvastatin Calcium (Atorvastatin Calcium) 10 Mg Tablet, 10 MG PO QHS, #30 TAB 08/25/18 Aspirin* (Aspirin*) 325 Mg Tablet, 325 MG PO DAILY, TAB 08/25/18 Melatonin (Melatonin) 5 Mg Tablet, 5 MG PO HS, TAB 08/25/18 Tamsulosin Hcl* (Flomax*) 0.4 Mg Cap.er.24h, 0.4 MG PO HS, CAP 08/24/17 Olanzapine* (Zyprexa*) 5 Mg Tablet, 5 MG PO DAILY, #30 TAB 08/24/17 Mirtazapine* (Mirtazapine*) 15 Mg Tablet, 15 MG PO HS, TAB 08/24/17 Donepezil* (Aricept*) 5 Mg Tablet, 5 MG PO DAILY, TAB 08/24/17 Discontinued Reported Medications Carvedilol* (Coreg*) 6.25 Mg Tablet, 6.25 MG PO BID, #60 TAB 08/24/17 Medications Current Medications Carvedilol (Coreg) 6.25 mg BID PO Last administered on 08/26/18at 22:35; Admin Dose 6.25 MG; Start 08/25/18 at 21:00 Donepezil HCl (Aricept) 5 mg DAILY PO Last administered on 08/26/18at 08:58; Admin Dose 5 MG; Start 08/26/18 at 09:00 Mirtazapine (Remeron) 15 mg HS PO Last administered on 08/26/18at 22:35; Admin Dose 15 MG; Start 08/25/18 at 21:00 Olanzapine (Zyprexa) 5 mg DAILY PO Last administered on 08/26/18at 08:58; Admin Dose 5 MG; Start 08/26/18 at 09:00 Tamsulosin HCl (Flomax) 0.4 mg HS PO Last administered on 08/26/18at 22:35; Admin Dose 0.4 MG; Start 08/25/18 at 21:00 IV Flush (NS 3 ml) 3 ml PER PROTOCOL IV ; Start 08/25/18 at 10:00 Ondansetron HCl (Zofran Inj) 4 mg Q6H PRN IV NAUSEA/VOMITING; Start 08/25/18 at 10:00 Acetaminophen (Tylenol Tab) 650 mg Q6H PRN PO .PAIN 1-3 OR TEMP; Start 08/25/18 at 10:00 Acetaminophen (Tylenol Supp) 650 mg Q6H PRN [place] .PAIN 1-3 OR TEMP; Start 08/25/18 at 10:00 Acetaminophen/ Hydrocodone Bitart ([place] (5/325)) 1 tab Q6H PRN PO .MOD PAIN 4- 6; Start 08/25/18 at 10:00 Morphine Sulfate (morphine) 2 mg Q4H PRN IV .SEVERE PAIN 7-10; Start 08/25/18 at 10:00 Docusate Sodium (Colace) 100 mg Q12H PRN PO .CONSTIPATION; Start 08/25/18 at 10:00 Magnesium Hydroxide (Milk Of Mag) 30 ml DAILY PRN PO .CONSTIPATION; Start 08/25/18 at 10:00 Bisacodyl (Dulcolax Supp) 10 mg DAILY PRN [place] .CONSTIPATION; Start 08/25/18 at 10:00 Famotidine (Pepcid Iv) 20 mg DAILY IV Last administered on 08/26/18at 08:58; Admin Dose 20 MG; Start 08/25/18 at 10:00 Aspirin (Aspirin) 81 mg DAILY PO ; Start 08/27/18 at 09:00 Nitroglycerin (Nitroglycerin (Sl Tab) 0.4 Mg) 1 tab Q5M PRN SL CHEST PAIN; S tart 08/25/18 at 10:00 Sodium Chloride 1,000 ml @ 100 mls/hr Q10H IV Last administered on 08/26/18at 2 2:40; Admin Dose 100 MLS/HR; Start 08/25/18 at 10:00 Heparin Sodium (Porcine) (Heparin (5000 Units/1ml)) 5,000 unit Q8 SC Last administered on 08/27/18at 06:25; Admin Dose 5,000 UNIT; Start 08/25/18 at 14:00 Assessment/Plan Hospital Course (Demo Recall) 1. Positive troponin concerning for non-ST elevation myocardial infarction with down trend in the setting of renal failure at this time and patient denying chest pain, although it is not clear - med Rx advised at this point. NOt a candiadte for intervention now with agitation and no clear CP. 2. Abnormal electrocardiogram with left bundle branch block pattern, which is unclear if this is a new or old history of likely coronary artery disease, likely status post CABG. The patient is status post median sternotomy. ECHO to follow EF. Will review. 3. Hypertension- reasonably controlled. 4. History of dyslipidemia. 5. Renal failure0 Cr 1.27 - will monitor for now. 6. Anemia. 7. Leukocytosis - on anti-bx now. 8. Dementia. THEODORE SYED MD Aug 27, 2018 10:02
[2018-08-27] MEDS: ASPIRIN 81 MG TAB PO SCH (10:03)
[2018-08-27] MEDS: FAMOTIDINE 20 MG INJ IV SCH (10:03)
[2018-08-27] MEDS: DONEPEZIL 5 MG TAB PO SCH (10:04)
[2018-08-27] MEDS: OLANZAPINE 5 MG TAB PO SCH (10:05)
[2018-08-27] MEDS: SOD CHLORIDE 0.9% 1,000 ML IV SCH ×2 (10:37→21:52)
--- NOTE | 2018-08-27 13:26 | PN ---
Date/Time of Note Date/Time of Note DATE: 08/27/18 TIME: 13:20 Assessment/Plan VTE Prophylaxis Risk score (from Ns)>0 risk: 7 SCD applied (from Ns): Yes Pharmacological prophylaxis: heparin Lines/Catheters IV Catheter Type (from [facility]): Peripheral IV Assessment/Plan Hospital Course Assessment plan 1. Suspect syncope. - Initial CT scan of the brain with no acute intracranial hemorrhage, infarction or mass-effect. - carotid Doppler: No evidence for a hemodynamically significant carotid artery stenosis. - PT following 2. Elevated troponin. - Stud Driver consulted. - echocardiogram: ejection fraction is visually estimated at 50 % - continue medical optimization per apprentice painter brush recommendations 3. Underlying dementia. - Continue reorientation. -Resume patient's home medication. 4. Leukocytosis. - Suspect reactive. - Follow-up on cultures. - Antipyretics as needed for fevers. 5. Acute on suspect chronic kidney disease. - Continue IV hydration. - nephrology consult pending clinical course - stable 6. Elevated creatinine kinase - Continue IV hydration. 7. Constipation per CT imaging. - Laxatives as needed. 8. Prostatomegaly. - Continue on Flomax. 9. History of hyperlipidemia. - resume home me 10. Hypertension. - Continue antihypertensives. Will adjust as needed. 11. Recent fall. -continue PT/OT Disposition and plan. Discussed case with patient's son Ed. f/u ST for diet recommendations. Plan for d/c once diet established. monitor for s/s of aspiration Discussed POC with Dr. Kim Result Diagram: 08/26/18 0508/26/18 0512 Subjective 24 Hr Interval Summary Free Text/Dictation patient still confused but more alert today. still does not follow commands Exam/Review of Systems Exam Vitals Vital Signs Date Temp Pulse Resp B/P (MAP) Pulse Ox O2 O2 Flow FiO2 Time Delivery Rate 08/27/18 98.5 73 18 128/69 93 11:48 (88) 08/27/18 Room Air 04:00 Intake and Output 08/26/18 08/26/18 08/27/18 1515:00 23:00 07:00 IntakeIntake Total 410 ml 80 ml OutputOutput Total 2 ml 500 ml BalanceBalance -2 ml -90 ml 80 ml Exam Constitutional: alert, confused No oriented Respiratory: clear to auscultation, normal air movement Cardiovascular: regular rate Gastrointestinal: soft, non-tender Musculoskeletal: No swelling Neurological: No nl mental status Skin: nl turgor Medications Medication Current Medications Carvedilol (Coreg) 6.25 mg BID PO Last administered on 08/27/18 10:05; Admin Dose 6.25 MG; Start 08/25/18 at 21:00 Donepezil HCl (Aricept) 5 mg DAILY PO Last administered on 08/27/18 10:04; Admin Dose 5 MG; Start 08/26/18 at 09:00 Mirtazapine (Remeron) 15 mg HS PO Last administered on 08/26/18 22:35; Admin Dose 15 MG; Start 08/25/18 at 21:00 Olanzapine (Zyprexa) 5 mg DAILY PO Last administered on 08/27/18 10:05; Admin Dose 5 MG; Start 08/26/18 at 09:00 Tamsulosin HCl (Flomax) 0.4 mg HS PO Last administered on 08/26/18 22:35; Admin Dose 0.4 MG; Start 08/25/18 at 21:00 IV Flush (NS 3 ml) 3 ml PER PROTOCOL IV ; Start 08/25/18 at 10:00 Ondansetron HCl (Zofran Inj) 4 mg Q6H PRN IV NAUSEA/VOMITING; Start 08/25/18 at 10:00 Acetaminophen (Tylenol Tab) 650 mg Q6H PRN PO .PAIN 1-3 OR TEMP; Start 08/25/18 at 10:00 Acetaminophen (Tylenol Supp) 650 mg Q6H PRN [place] .PAIN 1-3 OR TEMP; Start 08/25/18 at 10:00 Acetaminophen/ Hydrocodone Bitart ([place] (5/325)) 1 tab Q6H PRN PO .MOD PAIN 4- 6; Start 08/25/18 at 10:00 Morphine Sulfate (morphine) 2 mg Q4H PRN IV .SEVERE PAIN 7-10; Start 08/25/18 at 10:00 Docusate Sodium (Colace) 100 mg Q12H PRN PO .CONSTIPATION; Start 08/25/18 at 10:00 Magnesium Hydroxide (Milk Of Mag) 30 ml DAILY PRN PO .CONSTIPATION; Start 08/25/18 at 10:00 Bisacodyl (Dulcolax Supp) 10 mg DAILY PRN [place] .CONSTIPATION; Start 08/25/18 at 10:00 Famotidine (Pepcid Iv) 20 mg DAILY IV Last administered on 08/27/18at 10:03; Admin Dose 20 MG; Start 08/25/18 at 10:00 Aspirin (Aspirin) 81 mg DAILY PO Last administered on 08/27/18at 10:03; Admin Dose 81 MG; Start 08/27/18 at 09:00 Nitroglycerin (Nitroglycerin (Sl Tab) 0.4 Mg) 1 tab Q5M PRN SL CHEST PAIN; Start 08/25/18 at 10:00 Sodium Chloride 1,000 ml @ 100 mls/hr Q10H IV Last administered on 08/27/18at 10:37; Admin Dose 100 MLS/HR; Start 08/25/18 at 10:00 Heparin Sodium (Porcine) (Heparin (5000 Units/1ml)) 5,000 unit Q8 SC Last administered on 08/27/18at 06:25; Admin Dose 5,000 UNIT; Start 08/25/18 at 14:00 HOA PARDO NP Aug 27, 2018 13:26
[2018-08-27] MEDS: TAMSULOSIN (SR) 0.4 MG CAP PO SCH (21:46)
[2018-08-27] MEDS: ATORVASTATIN 10 MG TAB PO SCH (21:46)
[2018-08-27] MEDS: MIRTAZAPINE 15 MG TAB PO SCH (21:47)
[2018-08-28] VITALS: BP 155/75; PULSE 68; RESP 18
[2018-08-28 04:00] VITALS: BP 152/76; PULSE 70; RESP 17
[2018-08-28] MEDS: HEPARIN 5,000 UNIT/1 ML VIAL SC SCH ×3 (06:41→21:54)
[2018-08-28] MEDS: SOD CHLORIDE 0.9% 1,000 ML IV SCH (06:43)
[2018-08-28 08:00] VITALS: BP 139/89; PULSE 72; RESP 19
[2018-08-28] MEDS: ASPIRIN 81 MG TAB PO SCH (09:00)
[2018-08-28] MEDS: DONEPEZIL 5 MG TAB PO SCH (11:02)
[2018-08-28] MEDS: OLANZAPINE 5 MG TAB PO SCH (11:02)
[2018-08-28] MEDS: FAMOTIDINE 20 MG TAB PO SCH (11:02)
[2018-08-28] MEDS ORDERED: ASPI-831 PO (11:39)
[2018-08-28] MEDS ORDERED: CARV6.2579 PO (11:39)
[2018-08-28] MEDS ORDERED: HYDR-3601 PO (11:39)
--- NOTE | 2018-08-28 11:39 | PDOCDIS ---
Discharge Instructions DIAGNOSIS Discharge Diagnosis 1. Suspect syncope. 2. Elevated troponin. 3. Underlying dementia. 4. Leukocytosis. 5. Acute on suspect chronic kidney disease. 6. Elevated creatinine kinase 7. Constipation per CT imaging. 8. Prostatomegaly. 9. History of hyperlipidemia. 10. Hypertension. 11. Recent fall. CONDITION [id number] Patient Condition: [id number] Stable HOME CARE INSTRUCTIONS: [id number] Special Diet: [id number] PUREED /NECTAR DIET FOLLOW UP/APPOINTMENTS Follow-up Plan 1. Further management and care per residential facility HOA PARDO NP Aug 28, 2018 11:39
[2018-08-28 11:51] VITALS: BP 141/82; PULSE 69; RESP 17
[2018-08-28 12:00] VITALS: BP 141/82; PULSE 69; RESP 17
--- NOTE | 2018-08-28 12:12 | CONS ---
Consult Date/Type/Reason Admit Date/Time Aug 25, 2018 at 09:48 Initial Consult Date Date/Time of Note DATE: 08/28/18 TIME: 12:10 Subjective No acute events - pt comfortable - no CP- in good fluid status - dispo planning in place. ROS: No fever, no chills, no nausea, no vomiting, no diarrhea/constipation - less agitated per nurse Objective Vitals Vital Signs Date Temp Pulse Resp B/P (MAP) Pulse Ox O2 O2 Flow FiO2 Time Delivery Rate 08/28/18 97.1 69 17 141/82 95 Room Air 11:51 (101) Intake and Output 08/27/18 08/27/18 08/28/18 1515:00 23:00 07:00 IntakeIntake Total 50 ml 1470 ml 50 ml OutputOutput Total 1 ml BalanceBalance 50 ml 1469 ml 50 ml Exam General: WN/WD/NAD, AOx 0 HEENT: Unicetric/atraumatic/EOMI (does not follow commands) NECK: JVD elevated, no thyromegaly Lymph: no lymphadenopathy HEART: regular with no S3, II/ systolic murmur at apex LUNGS: Coarse sounds ABD: soft, NT, ND, +BS : Intact Neuro: non focal SKIN: chronic changes EXT: trace edema Results/Medications Result Diagram: 08/28/1852108/28/18521 Results 24 hrs Laboratory Tests Test 08/27/18 14:18 08/28/18 05:22 Creatine Kinase 511 H White Blood Count 6.6 Red Blood Count 3.92 L Hemoglobin 12.3 L Hematocrit 36.2 L Mean Corpuscular Volume 92.3 Mean Corpuscular Hemoglobin 31.4 Mean Corpuscular Hemoglobin Concent 34.0 Red Cell Distribution Width 13.4 Platelet Count 175 Mean Platelet Volume 10.9 H Immature Granulocytes % 0.300 Neutrophils % 62.9 Lymphocytes % 22.6 Monocytes % 8.5 Eosinophils % 5.2 Basophils % 0.5 Nucleated Red Blood Cells % 0.0 Immature Granulocytes # 0.020 Neutrophils # 4.2 Lymphocytes # 1.5 Monocytes # 0.6 Eosinophils # 0.3 Basophils # 0.0 Nucleated Red Blood Cells # 0.0 Sodium Level 142 Potassium Level 4.2 Chloride Level 110 Carbon Dioxide Level 25 Anion Gap 7 Blood Urea Nitrogen 16 Creatinine 1.28 H Est Glomerular Filtrat Rate mL/min Glucose Level 81 Calcium Level 8.7 Home Meds Active Scripts Hydrocodone Bit-Acetaminophen (Hydrocodone Bit-APAP) 5-325MG Tablet, 1 TAB PO Q6H PRN for .MOD PAIN 4-6, #20 TAB Prov:DARREN PARDONELL MAGNETO ELECTRICIAN 08/28/18 Aspirin (Aspirin) 81 Mg Chew, 81 MG PO DAILY, #30 TAB Prov:MELVIIMANHOA MAGNETO ELECTRICIAN 08/28/18 Carvedilol* (Carvedilol*) 6.25 Mg Tablet, 6.25 MG PO BID, #60 TAB Prov:MELVIKAISERDARREN VanceHOA MAGNETO ELECTRICIAN 08/28/18 Reported Medications Ipratropium [place] (Ipratropium [place]) 30 Ml [place], 30 ML NS TID, SPRAY 08/25/18 Docusate Sodium* (Colace*) 250 Mg Capsule, 250 MG PO DAILY, #30 CAP 08/25/18 Vitamin B Complex* (Vitamin B Complex*) 1 Each Tablet, 1 TAB PO DAILY, TAB 08/25/18 Pantoprazole* (Protonix*) 40 Mg Tablet.dr, 40 MG PO DAILY, TAB 08/25/18 Atorvastatin Calcium (Atorvastatin Calcium) 10 Mg Tablet, 10 MG PO QHS, #30 TAB 08/25/18 Tamsulosin Hcl* (Flomax*) 0.4 Mg Cap.er.24h, 0.4 MG PO HS, CAP 08/24/17 Olanzapine* (Zyprexa*) 5 Mg Tablet, 5 MG PO DAILY, #30 TAB 08/24/17 Mirtazapine* (Mirtazapine*) 15 Mg Tablet, 15 MG PO HS, TAB 08/24/17 Donepezil* (Aricept*) 5 Mg Tablet, 5 MG PO DAILY, TAB 08/24/17 Discontinued Reported Medications Ibuprofen* (Ibuprofen*) 600 Mg Tablet, 600 MG PO Q8 PRN for PAIN, TAB 08/25/18 Escitalopram Oxalate* (Lexapro*) 20 Mg Tablet, 20 MG PO DAILY, #30 TAB 08/25/18 Diazepam* (Diazepam*) 5 Mg Tablet, 5 MG PO TID, TAB 08/25/18 Carvedilol* (Carvedilol*) 3.125 Mg Tablet, 3.125 MG PO BID, #60 TAB 08/25/18 Aspirin* (Aspirin*) 325 Mg Tablet, 325 MG PO DAILY, TAB 08/25/18 Melatonin (Melatonin) 5 Mg Tablet, 5 MG PO HS, TAB 08/25/18 Carvedilol* (Coreg*) 6.25 Mg Tablet, 6.25 MG PO BID, #60 TAB 08/24/17 Medications Current Medications Carvedilol (Coreg) 6.25 mg BID PO Last administered on 08/28/18at 11:01; Admin Dose 6.25 MG; Start 08/25/18 at 21:00 Donepezil HCl (Aricept) 5 mg DAILY PO Last administered on 08/28/18at 11:02; Admin Dose 5 MG; Start 08/26/18 at 09:00 Mirtazapine (Remeron) 15 mg HS PO Last administered on 08/27/18at 21:47; Admin Dose 15 MG; Start 08/25/18 at 21:00 Olanzapine (Zyprexa) 5 mg DAILY PO Last administered on 08/28/18at 11:02; Admin Dose 5 MG; Start 08/26/18 at 09:00 Tamsulosin HCl (Flomax) 0.4 mg HS PO Last administered on 08/27/18at 21:46; Admin Dose 0.4 MG; Start 08/25/18 at 21:00 IV Flush (NS 3 ml) 3 ml PER PROTOCOL IV ; Start 08/25/18 at 10:00 Ondansetron HCl (Zofran Inj) 4 mg Q6H PRN IV NAUSEA/VOMITING; Start 08/25/18 at 10:00 Acetaminophen (Tylenol Tab) 650 mg Q6H PRN PO .PAIN 1-3 OR TEMP; Start 08/25/18 at 10:00 Acetaminophen (Tylenol Supp) 650 mg Q6H PRN [place] .PAIN 1-3 OR TEMP; Start 08/25/18 at 10:00 Acetaminophen/ Hydrocodone Bitart ([place] (5/325)) 1 tab Q6H PRN PO .MOD PAIN 4- 6; Start 08/25/18 at 10:00 Morphine Sulfate (morphine) 2 mg Q4H PRN IV .SEVERE PAIN 7-10; Start 08/25/18 at 10:00 Docusate Sodium (Colace) 100 mg Q12H PRN PO .CONSTIPATION; Start 08/25/18 at 10:00 Magnesium Hydroxide (Milk Of Mag) 30 ml DAILY PRN PO .CONSTIPATION; Start 08/25/18 at 10:00 Bisacodyl (Dulcolax Supp) 10 mg DAILY PRN [place] .CONSTIPATION; Start 08/25/18 at 10:00 Aspirin (Aspirin) 81 mg DAILY PO Last administered on 08/28/18at 09:00; Admin Do se 81 MG; Start 08/27/18 at 09:00 Nitroglycerin (Nitroglycerin (Sl Tab) 0.4 Mg) 1 tab Q5M PRN SL CHEST PAIN; Start 08/25/18 at 10:00 Heparin Sodium (Porcine) (Heparin (5000 Units/1ml)) 5,000 unit Q8 SC Last administered on 08/28/18at 06:41; Admin Dose 5,000 UNIT; Start 08/25/18 at 14:00 Atorvastatin Calcium (Lipitor) 10 mg QHS PO Last administered on 08/27/18at 21:46; Admin Dose 10 MG; Start 08/27/18 at 21:00 Famotidine (Pepcid) 20 mg DAILY PO Last administered on 08/28/18at 11:02; Admin Dose 20 MG; Start 08/28/18 at 09:00 Assessment/Plan Hospital Course (Demo Recall) 1. Positive troponin concerning for non-ST elevation myocardial infarction with down trend in the setting of renal failure at this time and patient denying chest pain, although it is not clear - med Rx advised at this point. Not a candidate for intervention now and likely back to baseline - con't med Rx. 2. Abnormal electrocardiogram with left bundle branch block pattern, which is unclear if this is a new or old history of likely coronary artery disease, likely status post CABG. The patient is status post median sternotomy. ECHO to follow EF. Will review. 3. Hypertension- reasonably controlled. Treated. 4. History of dyslipidemia. 5. Renal failure0 Cr 1.28 - will monitor for now. Will monitor clinically now. 6. Anemia. 7. Leukocytosis - on anti-bx now. 8. Dementia. THEODORE SYED MD Aug 28, 2018 12:12
--- NOTE | 2018-08-28 14:24 | PN ---
Date/Time of Note Date/Time of Note DATE: 08/28/18 TIME: 14:21 Assessment/Plan VTE Prophylaxis Risk score (from [facility])>0 risk: 7 SCD applied (from [facility]): Yes Pharmacological prophylaxis: heparin Lines/Catheters IV Catheter Type (from [facility] [place]): Peripheral IV Assessment/Plan Hospital Course Assessment plan 1. Suspect syncope. - Initial CT scan of the brain with no acute intracranial hemorrhage, infarction or mass-effect. - carotid Doppler: No evidence for a hemodynamically significant carotid artery stenosis. - PT following 2. Elevated troponin. - Fluid Jet Cutter Operator consulted. - echocardiogram: ejection fraction is visually estimated at 50 % - continue medical optimization per assistant chief engineer recommendations 3. Underlying dementia. - Continue reorientation. -Resume patient's home medication. 4. Leukocytosis. - Suspect reactive. - Follow-up on cultures. - Antipyretics as needed for fevers. 5. Acute on suspect chronic kidney disease. - Continue IV hydration. - nephrology consult pending clinical course - stable 6. Elevated creatinine kinase - Continue IV hydration. 7. Constipation per CT imaging. - Laxatives as needed. 8. Prostatomegaly. - Continue on Flomax. 9. History of hyperlipidemia. - resume home me 10. Hypertension. - Continue antihypertensives. Will adjust as needed. 11. Recent fall. -continue PT/OT Disposition and plan. d/c back to snf. Awaiting transfer per case assembler Discussed POC with Dr. Kim Result Diagram: 08/28/18 0508/28/18 0522 Results 24hrs Laboratory Tests Test 08/28/18 05:22 White Blood Count 6.6 Red Blood Count 3.92 L Hemoglobin 12.3 L Hematocrit 36.2 L Mean Corpuscular Volume 92.3 Mean Corpuscular Hemoglobin 31.4 Mean Corpuscular Hemoglobin Concent 34.0 Red Cell Distribution Width 13.4 Platelet Count 175 Mean Platelet Volume 10.9 H Immature Granulocytes % 0.300 Neutrophils % 62.9 Lymphocytes % 22.6 Monocytes % 8.5 Eosinophils % 5.2 Basophils % 0.5 Nucleated Red Blood Cells % 0.0 Immature Granulocytes # 0.020 Neutrophils # 4.2 Lymphocytes # 1.5 Monocytes # 0.6 Eosinophils # 0.3 Basophils # 0.0 Nucleated Red Blood Cells # 0.0 Sodium Level 142 Potassium Level 4.2 Chloride Level 110 Carbon Dioxide Level 25 Anion Gap 7 Blood Urea Nitrogen 16 Creatinine 1.28 H Est Glomerular Filtrat Rate mL/min Glucose Level 81 Calcium Level 8.7 Subjective 24 Hr Interval Summary Free Text/Dictation calm, no anxiety noted during visit Exam/Review of Systems Exam Vitals Vital Signs Date Temp Pulse Resp B/P (MAP) Pulse Ox O2 O2 Flow FiO2 Time Delivery Rate 08/28/18 97.1 69 17 141/82 95 12:00 (101) 08/28/18 Room Air 04:00 Intake and Output 08/27/18 08/27/18 08/28/18 1515:00 23:00 07:00 IntakeIntake Total 50 ml 1470 ml 50 ml OutputOutput Total 1 ml BalanceBalance 50 ml 1469 ml 50 ml Exam Constitutional: alert, confused No oriented Respiratory: clear to auscultation, normal air movement Cardiovascular: regular rate Gastrointestinal: soft, non-tender Musculoskeletal: No swelling Neurological: No nl mental status Skin: nl turgor Results Results 24hrs Laboratory Tests Test 08/28/18 05:22 White Blood Count 6.6 Red Blood Count 3.92 L Hemoglobin 12.3 L Hematocrit 36.2 L Mean Corpuscular Volume 92.3 Mean Corpuscular Hemoglobin 31.4 Mean Corpuscular Hemoglobin Concent 34.0 Red Cell Distribution Width 13.4 Platelet Count 175 Mean Platelet Volume 10.9 H Immature Granulocytes % 0.300 Neutrophils % 62.9 Lymphocytes % 22.6 Monocytes % 8.5 Eosinophils % 5.2 Basophils % 0.5 Nucleated Red Blood Cells % 0.0 Immature Granulocytes # 0.020 Neutrophils # 4.2 Lymphocytes # 1.5 Monocytes # 0.6 Eosinophils # 0.3 Basophils # 0.0 Nucleated Red Blood Cells # 0.0 Sodium Level 142 Potassium Level 4.2 Chloride Level 110 Carbon Dioxide Level 25 Anion Gap 7 Blood Urea Nitrogen 16 Creatinine 1.28 H Est Glomerular Filtrat Rate mL/min Glucose Level 81 Calcium Level 8.7 Medications Medication Current Medications Carvedilol (Coreg) 6.25 mg BID PO Last administered on 08/28/18at 11:01; Admin Dose 6.25 MG; Start 08/25/18 at 21:00 Donepezil HCl (Aricept) 5 mg DAILY PO Last administered on 08/28/18at 11:02; Admin Dose 5 MG; Start 08/26/18 at 09:00 Mirtazapine (Remeron) 15 mg HS PO Last administered on 08/27/18at 21:47; Admin Dose 15 MG; Start 08/25/18 at 21:00 Olanzapine (Zyprexa) 5 mg DAILY PO Last administered on 08/28/18at 11:02; Admin Dose 5 MG; Start 08/26/18 at 09:00 Tamsulosin HCl (Flomax) 0.4 mg HS PO Last administered on 08/27/18at 21:46; Admin Dose 0.4 MG; Start 08/25/18 at 21:00 IV Flush (NS 3 ml) 3 ml PER PROTOCOL IV ; Start 08/25/18 at 10:00 Ondansetron HCl (Zofran Inj) 4 mg Q6H PRN IV NAUSEA/VOMITING; Start 08/25/18 at 10:00 Acetaminophen (Tylenol Tab) 650 mg Q6H PRN PO .PAIN 1-3 OR TEMP Last administered on 08/28/18at 12:52; Admin Dose 650 MG; Start 08/25/18 at 10:00 Acetaminophen (Tylenol Supp) 650 mg Q6H PRN [place] .PAIN 1-3 OR TEMP; Start 08/25/18 at 10:00 Acetaminophen/ Hydrocodone Bitart ([place] (5/325)) 1 tab Q6H PRN PO .MOD PAIN 4- 6; Start 08/25/18 at 10:00 Morphine Sulfate (morphine) 2 mg Q4H PRN IV .SEVERE PAIN 7-10; Start 08/25/18 at 10:00 Docusate Sodium (Colace) 100 mg Q12H PRN PO .CONSTIPATION; Start 08/25/18 at 10:00 Magnesium Hydroxide (Milk Of Mag) 30 ml DAILY PRN PO .CONSTIPATION; Start 08/25/18 at 10:00 Bisacodyl (Dulcolax Supp) 10 mg DAILY PRN [place] .CONSTIPATION; Start 08/25/18 at 10:00 Aspirin (Aspirin) 81 mg DAILY PO Last administered on 08/28/18at 09:00; Admin Dose 81 MG; Start 08/27/18 at 09:00 Nitroglycerin (Nitroglycerin (Sl Tab) 0.4 Mg) 1 tab Q5M PRN SL CHEST PAIN; Start 08/25/18 at 10:00 Heparin Sodium (Porcine) (Heparin (5000 Units/1ml)) 5,000 unit Q8 SC Last administered on 08/28/18at 06:41; Admin Dose 5,000 UNIT; Start 08/25/18 at 14:00 Atorvastatin Calcium (Lipitor) 10 mg QHS PO Last administered on 08/27/18at 21:46; Admin Dose 10 MG; Start 08/27/18 at 21:00 Famotidine (Pepcid) 20 mg DAILY PO Last administered on 08/28/18at 11:02; Admin Dose 20 MG; Start 08/28/18 at 09:00 HOA PARDO NP Aug 28, 2018 14:24
[2018-08-28 20:00] VITALS: BP 147/76; PULSE 64; RESP 20
[2018-08-28] MEDS: ATORVASTATIN 10 MG TAB PO SCH (21:52)
[2018-08-28] MEDS: MIRTAZAPINE 15 MG TAB PO SCH (21:52)
[2018-08-28] MEDS: TAMSULOSIN (SR) 0.4 MG CAP PO SCH (21:52)
[2018-08-29] VITALS: BP 157/81; PULSE 65; RESP 17
[2018-08-29 02:00] VITALS: BP 149/84; PULSE 65; RESP 18
[2018-08-29 04:00] VITALS: BP 158/78; PULSE 64; RESP 18
[2018-08-29] MEDS: HEPARIN 5,000 UNIT/1 ML VIAL SC SCH ×3 (06:14→22:05)
--- NOTE | 2018-08-29 07:26 | CONS ---
Assessment/Plan Assessment/Plan Assessment/Plan (Daily) Syncopal episode Negative work-up thus far Positive troponin levels work-up in process, very few indications to do any invasive procedure secondary to patient underlying dementia Congestive heart failure Stable and being followed closely Status post coronary artery bypass graft Chronic renal insufficiency Dementia Severe, patient unable to do any activities of daily living Patient is a full code I will contact family members and try and set up a family conference however in lieu of that if I cannot get in touch with family members for a family conference will speak to son who apparently visits patient daily. Goals of care CODE STATUS needs to be addressed Consultation Date/Type/Reason Admit Date/Time Aug 25, 2018 at 09:48 Date/Time of Note DATE: 08/29/18 TIME: 07:22 Hx of Present Illness This is a palliative care consultation on this 82-year-old gentleman who was brought to the [facility] after having a syncopal episode but without CT scan evidence of any acute intracranial process. First fall patient is a full code chronic medical problems that would indicate high incidence of recurrence of acute medical problems related or unrelated to this diagnosis include past history of coronary artery bypass graft, dementia, chronic kidney disease, hypertension unable to do activities of daily living. Patient's son visits him daily at that patient's caregiver checks son for me to speak with him at a later date. Patient once again is high risk of major complications and problems related to dementia and other chronic disorders as noted above. Patient is a non-historian and he becomes confused and pull out his IVs at night requires a 24-hour 7-day a week sitter. Unable to give a review of systems Past Medical History Medical History: congestive heart failure, coronary artery disease, high cholesterol, renal disease, other (Dementia) Home Meds Active Scripts Hydrocodone Bit-Acetaminophen (Hydrocodone Bit-APAP) 5-325MG Tablet, 1 TAB PO Q6H PRN for .MOD PAIN 4-6, #20 TAB Prov:HOA PARDO CEMENTER MACHINE JOINER 08/28/18 Aspirin (Aspirin) 81 Mg Chew, 81 MG PO DAILY, #30 TAB Prov:HOA PARDO CEMENTER MACHINE JOINER 08/28/18 Carvedilol* (Carvedilol*) 6.25 Mg Tablet, 6.25 MG PO BID, #60 TAB Prov:HOA PARDO CEMENTER MACHINE JOINER 08/28/18 Reported Medications Ipratropium [place] (Ipratropium [place]) 30 Ml [place], 30 ML NS TID, SPRAY 08/25/18 Docusate Sodium* (Colace*) 250 Mg Capsule, 250 MG PO DAILY, #30 CAP 08/25/18 Vitamin B Complex* (Vitamin B Complex*) 1 Each Tablet, 1 TAB PO DAILY, TAB 08/25/18 Pantoprazole* (Protonix*) 40 Mg Tablet.dr, 40 MG PO DAILY, TAB 08/25/18 Atorvastatin Calcium (Atorvastatin Calcium) 10 Mg Tablet, 10 MG PO QHS, #30 TAB 08/25/18 Tamsulosin Hcl* (Flomax*) 0.4 Mg Cap.er.24h, 0.4 MG PO HS, CAP 08/24/17 Olanzapine* (Zyprexa*) 5 Mg Tablet, 5 MG PO DAILY, #30 TAB 08/24/17 Mirtazapine* (Mirtazapine*) 15 Mg Tablet, 15 MG PO HS, TAB 08/24/17 Donepezil* (Aricept*) 5 Mg Tablet, 5 MG PO DAILY, TAB 08/24/17 Discontinued Reported Medications Ibuprofen* (Ibuprofen*) 600 Mg Tablet, 600 MG PO Q8 PRN for PAIN, TAB 08/25/18 Escitalopram Oxalate* (Lexapro*) 20 Mg Tablet, 20 MG PO DAILY, #30 TAB 08/25/18 Diazepam* (Diazepam*) 5 Mg Tablet, 5 MG PO TID, TAB 08/25/18 Carvedilol* (Carvedilol*) 3.125 Mg Tablet, 3.125 MG PO BID, #60 TAB 08/25/18 Aspirin* (Aspirin*) 325 Mg Tablet, 325 MG PO DAILY, TAB 08/25/18 Melatonin (Melatonin) 5 Mg Tablet, 5 MG PO HS, TAB 08/25/18 Carvedilol* (Coreg*) 6.25 Mg Tablet, 6.25 MG PO BID, #60 TAB 08/24/17 Medications Current Medications Carvedilol (Coreg) 6.25 mg BID PO Last administered on 08/28/18at 21:52; Admin Dose 6.25 MG; Start 08/25/18 at 21:00 Donepezil HCl (Aricept) 5 mg DAILY PO Last administered on 08/28/18at 11:02; Admin Dose 5 MG; Start 08/26/18 at 09:00 Mirtazapine (Remeron) 15 mg HS PO Last administered on 08/28/18 21:52; Admin Dose 15 MG; Start 08/25/18 at 21:00 Olanzapine (Zyprexa) 5 mg DAILY PO Last administered on 08/28/18 11:02; Admin Dose 5 MG; Start 08/26/18 at 09:00 Tamsulosin HCl (Flomax) 0.4 mg HS PO Last administered on 08/28/18 21:52; Admin Dose 0.4 MG; Start 08/25/18 at 21:00 IV Flush (NS 3 ml) 3 ml PER PROTOCOL IV ; Start 08/25/18 at 10:00 Ondansetron HCl (Zofran Inj) 4 mg Q6H PRN IV NAUSEA/VOMITING; Start 08/25/18 at 10:00 Acetaminophen (Tylenol Tab) 650 mg Q6H PRN PO .PAIN 1-3 OR TEMP Last administered on 08/28/18at 12:52; Admin Dose 650 MG; Start 08/25/18 at 10:00 Acetaminophen (Tylenol Supp) 650 mg Q6H PRN [place] .PAIN 1-3 OR TEMP; Start 08/25/18 at 10:00 Acetaminophen/ Hydrocodone Bitart ([place] (5/325)) 1 tab Q6H PRN PO .MOD PAIN 4- 6; Start 08/25/18 at 10:00 Morphine Sulfate (morphine) 2 mg Q4H PRN IV .SEVERE PAIN 7-10; Start 08/25/18 at 10:00 Docusate Sodium (Colace) 100 mg Q12H PRN PO .CONSTIPATION; Start 08/25/18 at 10:00 Magnesium Hydroxide (Milk Of Mag) 30 ml DAILY PRN PO .CONSTIPATION; Start 08/25/18 at 10:00 Bisacodyl (Dulcolax Supp) 10 mg DAILY PRN [place] .CONSTIPATION; Start 08/25/18 at 10:00 Aspirin (Aspirin) 81 mg DAILY PO Last administered on 08/28/18at 09:00; Admin Dose 81 MG; Start 08/27/18 at 09:00 Nitroglycerin (Nitroglycerin (Sl Tab) 0.4 Mg) 1 tab Q5M PRN SL CHEST PAIN; Start 08/25/18 at 10:00 Heparin Sodium (Porcine) (Heparin (5000 Units/1ml)) 5,000 unit Q8 SC Last administered on 08/29/18at 06:14; Admin Dose 5,000 UNIT; Start 08/25/18 at 14:00 Atorvastatin Calcium (Lipitor) 10 mg QHS PO Last administered on 08/28/18at 21:52; Admin Dose 10 MG; Start 08/27/18 at 21:00 Famotidine (Pepcid) 20 mg DAILY PO Last administered on 08/28/18at 11:02; Admin Dose 20 MG; Start 08/28/18 at 09:00 Allergies: Coded Allergies: No Known Allergy (Unverified , 08/25/18) Past Surgical History Past Surgical Hx: other (Incomplete database) Family History Significant Family History: other (Incomplete database) Social History Smoking Status: Unknown if ever smoked Drug Use: other (Incomplete database) Exam/Review of Systems Exam Vitals Vital Signs Date Temp Pulse Resp B/P (MAP) Pulse Ox O2 O2 Flow FiO2 Time Delivery Rate 08/29/18 97.6 64 18 158/78 96 04:00 (104) 08/28/18 Room Air 04:00 Intake and Output 08/28/18 08/28/18 08/29/18 1414:59 22:59 06:59 IntakeIntake Total 1180 ml 140 ml 80 ml BalanceBalance 1180 ml 140 ml 80 ml Constitutional: frail Psych: confusion Head: normocephalic, atraumatic Eyes: nl conjunctiva, EOMI, nl lids, nl sclera, PERRL ENMT: nl external ears & nose, nl lips & teeth, nl nasal mucosa & septum Neck: supple, non-tender Respiratory: clear to auscultation, normal air movement Cardiovascular: regular rate and rhythm, nl pulses Gastrointestinal: soft, nl liver, spleen, non-tender Extremities: normal pulses Neurological: lethargic, other (Does not do any purposeful activities cranial nerves II through XII grossly intact motor unable to assess secondary patient not been able to follow simple commands unable to sensory examination patient tracks but does not follow simple commands) Results Result Diagram: 08/28/1852108/28/18521 Medications Medication Current Medications Carvedilol (Coreg) 6.25 mg BID PO Last administered on 08/28/18at 21:52; Admin Dose 6.25 MG; Start 08/25/18 at 21:00 Donepezil HCl (Aricept) 5 mg DAILY PO Last administered on 08/28/18 11:02; Admin Dose 5 MG; Start 08/26/18 at 09:00 Mirtazapine (Remeron) 15 mg HS PO Last administered on 08/28/18 21:52; Admin Dose 15 MG; Start 08/25/18 at 21:00 Olanzapine (Zyprexa) 5 mg DAILY PO Last administered on 08/28/18 11:02; Admin Dose 5 MG; Start 08/26/18 at 09:00 Tamsulosin HCl (Flomax) 0.4 mg HS PO Last administered on 08/28/18 21:52; Admin Dose 0.4 MG; Start 08/25/18 at 21:00 IV Flush (NS 3 ml) 3 ml PER PROTOCOL IV ; Start 08/25/18 at 10:00 Ondansetron HCl (Zofran Inj) 4 mg Q6H PRN IV NAUSEA/VOMITING; Start 08/25/18 at 10:00 Acetaminophen (Tylenol Tab) 650 mg Q6H PRN PO .PAIN 1-3 OR TEMP Last administered on 08/28/18at 12:52; Admin Dose 650 MG; Start 08/25/18 at 10:00 Acetaminophen (Tylenol Supp) 650 mg Q6H PRN [place] .PAIN 1-3 OR TEMP; Start 08/25/18 at 10:00 Acetaminophen/ Hydrocodone Bitart ([place] (5/325)) 1 tab Q6H PRN PO .MOD PAIN 4- 6; Start 08/25/18 at 10:00 Morphine Sulfate (morphine) 2 mg Q4H PRN IV .SEVERE PAIN 7-10; Start 08/25/18 at 10:00 Docusate Sodium (Colace) 100 mg Q12H PRN PO .CONSTIPATION; Start 08/25/18 at 10:00 Magnesium Hydroxide (Milk Of Mag) 30 ml DAILY PRN PO .CONSTIPATION; Start 08/25/18 at 10:00 Bisacodyl (Dulcolax Supp) 10 mg DAILY PRN [place] .CONSTIPATION; Start 08/25/18 at 10:00 Aspirin (Aspirin) 81 mg DAILY PO Last administered on 08/28/18 09:00; Admin Dose 81 MG; Start 08/27/18 at 09:00 Nitroglycerin (Nitroglycerin (Sl Tab) 0.4 Mg) 1 tab Q5M PRN SL CHEST PAIN; Start 08/25/18 at 10:00 Heparin Sodium (Porcine) (Heparin (5000 Units/1ml)) 5,000 unit Q8 SC Last administered on 08/29/18at 06:14; Admin Dose 5,000 UNIT; Start 08/25/18 at 14:00 Atorvastatin Calcium (Lipitor) 10 mg QHS PO Last administered on 08/28/18at 21:52; Admin Dose 10 MG; Start 08/27/18 at 21:00 Famotidine (Pepcid) 20 mg DAILY PO Last administered on 08/28/18at 11:02; Admin Dose 20 MG; Start 08/28/18 at 09:00 PATRICIA MIMS Aug 29, 2018 07:26
[2018-08-29 09:05] VITALS: BP 169/89; PULSE 74; RESP 18
[2018-08-29] MEDS: ASPIRIN 81 MG TAB PO SCH (09:12)
[2018-08-29] MEDS: DONEPEZIL 5 MG TAB PO SCH (09:12)
[2018-08-29] MEDS: FAMOTIDINE 20 MG TAB PO SCH (09:12)
[2018-08-29] MEDS: OLANZAPINE 5 MG TAB PO SCH (09:12)
[2018-08-29 14:56] VITALS: BP 158/79; PULSE 77; RESP 24
--- NOTE | 2018-08-29 17:22 | PN ---
Date/Time of Note Date/Time of Note DATE: 08/29/18 TIME: 17:21 Assessment/Plan VTE Prophylaxis Risk score (from [facility])>0 risk: 7 SCD applied (from [facility] [place] [facility]): Yes Pharmacological prophylaxis: heparin Lines/Catheters [facility] [place] Assessment/Plan Hospital Course Assessment plan 1. Suspect syncope. - Initial CT scan of the brain with no acute intracranial hemorrhage, infarction or mass-effect. - carotid Doppler: No evidence for a hemodynamically significant carotid artery stenosis. - PT following 2. Elevated troponin. - Shotblast Operator consulted. - echocardiogram: ejection fraction is visually estimated at 50 % - continue medical optimization per discovery manager recommendations 3. Underlying dementia. - Continue reorientation. -continue patient's home medication. 4. Leukocytosis. - Suspect reactive. - Follow-up on cultures. - Antipyretics as needed for fevers. 5. Acute on suspect chronic kidney disease. - Continue IV hydration. - nephrology consult pending clinical course - stable 6. Elevated creatinine kinase - Continue IV hydration. 7. Constipation per CT imaging. - Laxatives as needed. 8. Prostatomegaly. - Continue on Flomax. 9. History of hyperlipidemia. - resume home me 10. Hypertension. - Continue antihypertensives. Will adjust as needed. 11. Recent fall. -continue PT/OT Disposition and plan. d/c back to snf. Awaiting transfer per therapeutic case manager. continue current tx. f/u labs Discussed POC with Dr. Kim Result Diagram: 08/28/18 0508/28/18 05 Subjective 24 Hr Interval Summary Free Text/Dictation no apparent distress. Still confused at baseline. Exam/Review of Systems Exam Vitals Vital Signs Date Temp Pulse Resp B/P (MAP) Pulse Ox O2 O2 Flow FiO2 Time Delivery Rate 08/29/18 98.3 77 24 158/79 97 Room Air 14:56 (105) Intake and Output 08/28/18 08/28/18 08/29/18 1515:00 23:00 07:00 IntakeIntake Total 1180 ml 140 ml 80 ml BalanceBalance 1180 ml 140 ml 80 ml Exam Constitutional: alert, confused No oriented Respiratory: clear to auscultation, normal air movement Cardiovascular: regular rate Gastrointestinal: soft, non-tender Musculoskeletal: No swelling Neurological: No nl mental status Skin: nl turgor Medications Medication Current Medications Carvedilol (Coreg) 6.25 mg BID PO Last administered on 08/29/18 09:12; Admin Dose 6.25 MG; Start 08/25/18 at 21:00 Donepezil HCl (Aricept) 5 mg DAILY PO Last administered on 08/29/18 09:12; Admin Dose 5 MG; Start 08/26/18 at 09:00 Mirtazapine (Remeron) 15 mg HS PO Last administered on 08/28/18 21:52; Admin Dose 15 MG; Start 08/25/18 at 21:00 Olanzapine (Zyprexa) 5 mg DAILY PO Last administered on 08/29/18 09:12; Admin Dose 5 MG; Start 08/26/18 at 09:00 Tamsulosin HCl (Flomax) 0.4 mg HS PO Last administered on 08/28/18 21:52; Admin Dose 0.4 MG; Start 08/25/18 at 21:00 IV Flush (NS 3 ml) 3 ml PER PROTOCOL IV ; Start 08/25/18 at 10:00 Ondansetron HCl (Zofran Inj) 4 mg Q6H PRN IV NAUSEA/VOMITING; Start 08/25/18 at 10:00 Acetaminophen (Tylenol Tab) 650 mg Q6H PRN PO .PAIN 1-3 OR TEMP Last administered on 08/28/18 12:52; Admin Dose 650 MG; Start 08/25/18 at 10:00 Acetaminophen (Tylenol Supp) 650 mg Q6H PRN [place] .PAIN 1-3 OR TEMP; Start 08/25/18 at 10:00 Acetaminophen/ Hydrocodone Bitart ([place] (5/325)) 1 tab Q6H PRN PO .MOD PAIN 4- 6; Start 08/25/18 at 10:00 Morphine Sulfate (morphine) 2 mg Q4H PRN IV .SEVERE PAIN 7-10; Start 08/25/18 at 10:00 Docusate Sodium (Colace) 100 mg Q12H PRN PO .CONSTIPATION; Start 08/25/18 at 10:00 Magnesium Hydroxide (Milk Of Mag) 30 ml DAILY PRN PO .CONSTIPATION; Start 08/25/18 at 10:00 Bisacodyl (Dulcolax Supp) 10 mg DAILY PRN [place] .CONSTIPATION; Start 08/25/18 at 10:00 Aspirin (Aspirin) 81 mg DAILY PO Last administered on 08/29/18 09:12; Admin Dose 81 MG; Start 08/27/18 at 09:00 Nitroglycerin (Nitroglycerin (Sl Tab) 0.4 Mg) 1 tab Q5M PRN SL CHEST PAIN; Start 08/25/18 at 10:00 Heparin Sodium (Porcine) (Heparin (5000 Units/1ml)) 5,000 unit Q8 SC Last administered on 08/29/18at 14:51; Admin Dose 5,000 UNIT; Start 08/25/18 at 14:00 Atorvastatin Calcium (Lipitor) 10 mg QHS PO Last administered on 08/28/18at 21:52; Admin Dose 10 MG; Start 08/27/18 at 21:00 Famotidine (Pepcid) 20 mg DAILY PO Last administered on 08/29/18 09:12; Admin Dose 20 MG; Start 08/28/18 at 09:00 HOA PARDO NP Aug 29, 2018 17:22
[2018-08-29 19:23] VITALS: BP 132/67; PULSE 76; RESP 18
[2018-08-29] MEDS: MIRTAZAPINE 15 MG TAB PO SCH (22:03)
[2018-08-29] MEDS: TAMSULOSIN (SR) 0.4 MG CAP PO SCH (22:03)
[2018-08-29] MEDS: ATORVASTATIN 10 MG TAB PO SCH (22:03)
[2018-08-30 02:28] VITALS: BP 131/72; PULSE 73; RESP 18
[2018-08-30] MEDS: HEPARIN 5,000 UNIT/1 ML VIAL SC SCH ×2 (06:17→15:16)
[2018-08-30 08:01] VITALS: BP 130/68; PULSE 76; RESP 18
[2018-08-30] MEDS: FAMOTIDINE 20 MG TAB PO SCH (09:26)
[2018-08-30] MEDS: DONEPEZIL 5 MG TAB PO SCH (09:26)
[2018-08-30] MEDS: OLANZAPINE 5 MG TAB PO SCH (09:26)
[2018-08-30] MEDS: ASPIRIN 81 MG TAB PO SCH (09:26)
[2018-08-30 14:00] VITALS: BP 128/63; PULSE 74; RESP 20
--- NOTE | 2018-08-30 15:45 | DS ---
Date/Time of Note Date/Time of Note DATE: 08/30/18 TIME: 15:43 Discharge Summary Admission/Discharge Info Admit Date/Time Aug 25, 2018 at 09:48 Discharge Date/Time Discharge Diagnosis 1. Suspect syncope, no recurrence 2. Elevated troponin, unlikely cardiac, follow up with cardiology 3. Underlying dementia, chronic 4. Leukocytosis, stress related, resolved 5. Acute on suspect chronic kidney disease, stable, follow up with PCP 6. History of hyperlipidemia, on statin 7. Hypertension, controlled Patient Condition: Stable Procedures Echocardiogram Report Patient Name: TREY MODI : 10-23-1936 (82y 9m) Study Date: 08/25/2018 10:06:33 AM Gender: M Tech: Saeed Baum RDCS Location: [facility] Ref.Physician: HOA PARDO Height(Cm): BSA: Weight(Kg): Quality: Adequate Order Physician: HOA PARDO Account #: Procedures: Echocardiographic Report: Transthoracic echocardiogram with complete 2D, M-Mode, and doppler examination. Indications: NSTEMI. LBBB. Measurements: 2D/M Mode Doppler Measurement Value Normal Range Measurement Value Normal Range LVIDd 2D 4.8 [ 4.2 - 5.8 ] cm AV Peak [place] 1.0 [ 100.0 - 170.0 ] cm/sec LVIDs 2D 2.7 [ 2.5 - 4.0 ] cm AV Peak PG 4.0 [ 2.0 - 9.0 ] mmHg LVPWd 2D 1.3 [ 0.6 - 1.0 ] cm AI Peak PG 27.0 mmHg IVSd 2D 1.4 [ 0.6 - 1.0 ] cm AI Peak [place] 2.6 cm/sec AoR Diam 2D 3.5 [ 2.6 - 3.4 ] cm AI PHT 286.0 msec EDV 2D 109.0 [ 62.0 - 150.0 ] ml LVOT Peak [place] 0.9 [ 70.0 - 110.0 ] cm/sec ESV 2D 26.8 [ 21.0 - 61.0 ] ml LVOT Peak PG 3.0 [ 2.0 - 6.0 ] mmHg EF 2D 75.4 [ 52.0 - 72.0 ] percent MV Peak [place] 1.7 [ 60.0 - 130.0 ] cm/sec LA Dimen 2D 3.9 [ 3.0 - 4.0 ] cm MV Peak PG 11.0 [ 1.0 - 10.0 ] mmHg MV Mean Kwesi 0.9 cm/sec MV Mean PG 4.0 mmHg MV VTI 35.8 cm TR Peak [place] 1.9 [ 100.0 - 280.0 ] cm/sec TR Peak PG 15.0 mmHg RVSP 18.0 [ 10.0 - 36.0 ] mmHg RA Pressure 3.0 mmHg Findings: Left Ventricle: Normal left ventricular systolic function. Normal left ventricular cavity size. Moderate concentric left ventricular hypertrophy. Ejection fraction is visually estimated at 50 %. Tissue Doppler/Mitral Doppler indices are indeterminate in this study due to the presence of mitral valve repair. Right Ventricle: Normal right ventricular size. Normal right ventricular systolic function. Left Atrium: The left atrium is normal in size. Right Atrium: The right atrium is normal in size. Mitral Valve: Mitral Valve Bio Prosthesis. Mitral valve Max Velocity 1.66 m/sec. MaxPG 11.00 mmHg. MeanPG 4.00 mmHg. Aortic Valve: No hemodynamically significant aortic stenosis by doppler. Aortic cusps appear moderately calcified. Mild aortic valve regurgitation. Tricuspid Valve: Normal appearance and function of the tricuspid valve with trace physiologic regurgitation. Normal right ventricular systolic pressure. Pulmonic Valve: Normal pulmonic valve appearance. Pericardium: Normal pericardium with no significant pericardial effusion. Aorta: Normal aortic root. IVC: Normal size and normal respiratory collapse consistent with normal right atrial pressure. Conclusions: Normal left ventricular systolic function. Normal left ventricular cavity size. Moderate concentric left ventricular hypertrophy. Ejection fraction is visually estimated at 50 %. Tissue Doppler/Mitral Doppler indices are indeterminate in this study due to the presence of mitral valve repair. Mitral Valve Bio Prosthesis. Mitral valve Max Velocity 1.66 m/sec. MaxPG 11.00 mmHg. MeanPG 4.00 mmHg. No hemodynamically significant aortic stenosis by doppler. Aortic cusps appear moderately calcified. Mild aortic valve regurgitation. Normal pericardium with no significant pericardial effusion. Electronically Signed By: Miguel Everett 2018-08-25 15:21:12 PDT Hospital Course This Is an 82-year-old male with history of hypertension, hyperlipidemia, CHF, suspect CABG, who came to the hospital from care facility due to reported fall (unwitnessed) and there was suspicion of syncope. Patient does have underlying dementia and is unable to give an account of his medical history. Current history obtained from staff and medical record. EKG was noted to have left bundle branch block with elevated troponin at 0.134 with slight downward trend to 0.131. He also had some renal insufficiency with a creatinine of 1.49 with baseline unknown. Initial brain CT showed no acute intracranial hemorrhage or transcortical infarction or mass-effect. Abdominal CT was done on August 24, 2018 and only showed small hiatal hernia and thickening of the avery of the stomach but no evidence of bowel obstruction. Chest x-ray showed mild to moderate cardiomegaly without congestive heart failure and tiny left pleural effusion. Patient denies any chest pain. He was afebrile on admission. He was noted with some leukocytosis as well. Is alert but not oriented which is likely his baseline given his history of dementia. We will evaluate him for the aforementioned issues. Patient fell but not sure if he lost consciousness. Patient has no loss of consciousness after admission. Echocardiography with LVEF 50% with a bioprosthetic mitral valve. Troponin was mildly elevated to 0.134, he has e levated CPK at 914 and Cr 1.49. It is hard to say the mildly elevated troponin is NSTEMI or secondary from muscle injury from the fall and acute kidney injury. Cardiology consultation does not recommend further cardiac work up at this time. BUN/Cr are 16/1.25 on 08/30/2018. Home Meds Active Scripts Hydrocodone Bit-Acetaminophen (Hydrocodone Bit-APAP) 5-325MG Tablet, 1 TAB PO Q6H PRN for .MOD PAIN 4-6, #20 TAB Prov:HOA PARDO NP 08/28/18 Aspirin (Aspirin) 81 Mg Chew, 81 MG PO DAILY, #30 TAB Prov:HOA PARDO NP 08/28/18 Carvedilol* (Carvedilol*) 6.25 Mg Tablet, 6.25 MG PO BID, #60 TAB Prov:HOA PARDO NP 08/28/18 Reported Medications Ipratropium [place] (Ipratropium [place]) 30 Ml [place], 30 ML NS TID, SPRAY 08/25/18 Docusate Sodium* (Colace*) 250 Mg Capsule, 250 MG PO DAILY, #30 CAP 08/25/18 Vitamin B Complex* (Vitamin B Complex*) 1 Each Tablet, 1 TAB PO DAILY, TAB 08/25/18 Pantoprazole* (Protonix*) 40 Mg Tablet.dr, 40 MG PO DAILY, TAB 08/25/18 Atorvastatin Calcium (Atorvastatin Calcium) 10 Mg Tablet, 10 MG PO QHS, #30 TAB 08/25/18 Tamsulosin Hcl* (Flomax*) 0.4 Mg Cap.er.24h, 0.4 MG PO HS, CAP 08/24/17 Olanzapine* (Zyprexa*) 5 Mg Tablet, 5 MG PO DAILY, #30 TAB 08/24/17 Mirtazapine* (Mirtazapine*) 15 Mg Tablet, 15 MG PO HS, TAB 08/24/17 Donepezil* (Aricept*) 5 Mg Tablet, 5 MG PO DAILY, TAB 08/24/17 Discontinued Reported Medications Ibuprofen* (Ibuprofen*) 600 Mg Tablet, 600 MG PO Q8 PRN for PAIN, TAB 08/25/18 Escitalopram Oxalate* (Lexapro*) 20 Mg Tablet, 20 MG PO DAILY, #30 TAB 08/25/18 Diazepam* (Diazepam*) 5 Mg Tablet, 5 MG PO TID, TAB 08/25/18 Carvedilol* (Carvedilol*) 3.125 Mg Tablet, 3.125 MG PO BID, #60 TAB 08/25/18 Aspirin* (Aspirin*) 325 Mg Tablet, 325 MG PO DAILY, TAB 08/25/18 Melatonin (Melatonin) 5 Mg Tablet, 5 MG PO HS, TAB 08/25/18 Carvedilol* (Coreg*) 6.25 Mg Tablet, 6.25 MG PO BID, #60 TAB 08/24/17 Follow-up Plan PCP and cardiology in one week Primary Care Provider Not On Staff Doctor Pending Labs Laboratory Tests Test 08/30/18 05:05 White Blood Count 7.4 10^3/ul (4.8-10.8) Red Blood Count 4.43 10^6/ul (4.70-6.10) Hemoglobin 13.7 g/dl (14.0-18.0) Hematocrit 40.3 % (42.0-52.0) Mean Corpuscular Volume 91.0 fl (82.0-101.0) Mean Corpuscular Hemoglobin 30.9 pg (29.0-33.0) Mean Corpuscular Hemoglobin Concent 34.0 g/dl (32.0-37.0) Red Cell Distribution Width 13.4 % (11.5-14.5) Platelet Count 211 10^3/UL (140-415) Mean Platelet Volume 10.5 fl (7.4-10.4) Immature Granulocytes % 0.400 % (0.001-0.429) Neutrophils % 56.6 % (39.0-77.0) Lymphocytes % 26.8 % (15.0-51.0) Monocytes % 10.1 % (0.0-11.0) Eosinophils % 5.7 % (0.0-7.0) Basophils % 0.4 % (0.0-2.0) Nucleated Red Blood Cells % 0.0 /100WBC (0.0-0.0) Immature Granulocytes # 0.030 10^3/ul (0.0-0.031) Neutrophils # 4.2 10^3/ul (1.6-7.5) Lymphocytes # 2.0 10^3/ul (0.8-2.9) Monocytes # 0.7 10^3/ul (0.3-0.9) Eosinophils # 0.4 10^3/ul (0.0-0.5) Basophils # 0.0 10^3/ul (0.0-0.1) Nucleated Red Blood Cells # 0.0 10^3/ul (0.0-0.0) Sodium Level 144 mmol/L (135-144) Potassium Level 4.0 mmol/L (3.5-5.1) Chloride Level 108 mmol/L (97-110) Carbon Dioxide Level 28 mmol/L (21-31) Anion Gap 8 (5-13) Blood Urea Nitrogen 16 mg/dl (7-20) Creatinine 1.25 mg/dl (0.61-1.24) Est Glomerular Filtrat Rate mL/min mL/min (>60) Glucose Level 99 mg/dl (70-220) Calcium Level 9.5 mg/dl (8.4-10.2) MADELAINE CHOW MD Aug 30, 2018 15:45
== END 2018-08-30 16:46 | disposition home or self-care (01) | DRG 312 ==
LOC: E/R 07:04 → 6WM 09:08 → OBSVTOIN 09:48 → 6WM 18:03 → 2NE 08-28 14:01
PROVIDERS: ADMIT Internal Medicine; ATTEND Internal Medicine
DX: R55 Syncope and collapse (principal); N17.9 Acute kidney failure, unspecified; F03.90 Unspecified dementia, unspecified severity, without behavioral disturbance, psychotic disturbance, mood disturbance, and anxiety; I12.9 Hypertensive chronic kidney disease with stage 1 through stage 4 chronic kidney disease, or unspecified chronic kidney disease; N18.9 Chronic kidney disease, unspecified; E78.5 Hyperlipidemia, unspecified; K59.00 Constipation, unspecified; N40.0 Benign prostatic hyperplasia without lower urinary tract symptoms
CPT/HCPCS: 36415; 70450; 71045; 80048; 80053; 80061; 81003; 82550; 82553; 82962; 83036; 83735; 84100; 84436; 84443; 84479; 84484; 85025; 85610; 85730; 87081; 87086; 92526; 92610; 93005; 93306; 93880; 97116; 97162; 97167; 97530; G0378; J1644; J2270; J7030

== ENCOUNTER 2018-10-19 02:39 | Emergency (ER) | payer BC ==
[~2018-10-19] VITALS: Ht 167.6 cm; Wt 72.7 kg
[~2018-10-19 02:39] MED LIST changes: +ASPI-831 PO; +ATOR10TA65 PO; -CARV6.25 PO; +CARV6.2579 PO; +DOCU250C58 PO; +HYDR-3601 PO; +IPRA30SP NS; +PANT40TA3 PO; +VIT1TABL46 PO
[2018-10-19 02:40] VITALS: Ht 167.6 cm; Wt 72.7 kg
[2018-10-19 07:31] VITALS: BP 168/92; PULSE 76; RESP 18
== END 2018-10-19 07:36 | disposition home or self-care (01) ==
LOC: E/R 02:39
DX: S01.01XA Laceration without foreign body of scalp, initial encounter (principal); I10 Essential (primary) hypertension; I25.10 Atherosclerotic heart disease of native coronary artery without angina pectoris; W18.30XA Fall on same level, unspecified, initial encounter; Y92.89 Other specified places as the place of occurrence of the external cause; Z79.82 Long term (current) use of aspirin; Z87.891 Personal history of nicotine dependence
CPT/HCPCS: 70450; 72125